=== PATIENT | male | born 1960 | race Caucasian/White ===

== ENCOUNTER 2017-06-26 13:20 | Emergency (ER) | payer MEDICAID, SELFPAY ==
[2017-06-26 13:22] VITALS: BP 176/108; PULSE 79; RESP 20; TEMP 36.4; O2SAT 98; BMI 27.3
[2017-06-26 13:48] VITALS: BP 160/95; PULSE 80; RESP 14; O2SAT 98
[2017-06-26 13:57] LABS: Bacteria 0 SEEN /hpf (None Seen); Mucous, Urine 0 SEEN /hpf (<or=2+); Squamous Epithelial Cells - UA 0 SEEN /hpf (0-5)
[2017-06-26 13:58] LABS: Color, Urine Yellow (Yellow); Glucose, Dipstick Normal (Normal); Ketone-Dipstick Negative (Negative); Leukocyte Esterase-Dipstick 25 /ul (Negative); Nitrite-Dipstick Positive (Negative); Occult Blood-Urine 250 /ul (Negative); Protein-Dipstick 30 mg/dl (Negative); Specific Gravity, Urine 1.025 (1.002-1.030); Urine Bilirubin Dipstick Negative (Negative); Urine Clarity Sl. Cloudy (Clear); Urine Urobilinogen Normal (Normal)
[2017-06-26 14:03] LABS: Red Blood Cells-Urine > 100 SEEN /hpf (0-5)
[2017-06-26 14:05] LABS: White Blood Cells 0-5 SEEN /hpf (0-5); Yeast-Urine RARE /hpf (None Seen)
--- NOTE | 2017-06-26 14:55 | CT_ITS ---
STUDY: CT ABDOMEN AND PELVIS WITHOUT CONTRAST REASON FOR EXAM: Male, 56 years old. Right sided flank pain. RADIATION DOSAGE (If Supplied By Facility): CTDIvol = ( 14.66 ) mGy, DLP = ( 765.69 ) mGycm TECHNIQUE: Transaxial images were obtained from the dome of the diaphragm to the symphysis pubis without oral contrast, and without intravenous contrast. Sagittal and coronal images were reconstructed. Individualized dose optimization techniques were used for this CT. COMPARISON: None. FINDINGS: The visualized lung bases are unremarkable. The visualized portions of the heart are within normal limits. Normal liver. Normal gallbladder and extrahepatic biliary system. Normal spleen. Normal pancreas. Normal bilateral adrenal glands. 2 mm calculus in the upper midportion of the right kidney. Normal left kidney. There is a small hiatal hernia. Normal small intestine. Normal colon. The appendix is visualized and appears normal. There is scattered atherosclerotic calcification of the abdominal aorta, without a demonstrated aneurysm. Normal inferior vena cava. Normal retroperitoneum. Normal urinary bladder. There are prostatic calcifications. Normal abdominal wall. There are degenerative changes of the visualized lumbar spine. CT/Abdomen/Pelvis without Cont IMPRESSION: Nonobstructive right intrarenal calculus. Electronically Signed: Josh Truong MD at 15:36 EDT Tel [phone], Service support ,
[2017-06-26] MEDS: HYDROmorphone 1 MG/ML Syringe 0.5 MG IV (15:01)
[2017-06-26] MEDS: Ketorolac 30 MG/ML Syringe IV (15:02)
[2017-06-26] MEDS: Ondansetron 4 MG/2 ML Vial IV (15:02)
[2017-06-26 15:10] LABS: Absolute Lymphocyte Count 4.17 X10^3/ul (0.83-4.51); Absolute Neutrophil Count 3.1 X10^3/uL (2.0-7.7); Basophil# 0.05 X10^3/uL; Basophil% 0.6 % (0-1); Eosinophil# 0.19 X10^3/uL; Eosinophils% 2.2 % (0-5); Hematocrit 47.9 % (40-54); Hemoglobin 16.2 g/dl (13.0-16.5); Lymphocyte # 4.17 X10^3/ul (4.0); Lymphocyte % 47.7 % (19-41); Mean Corp Hgb Conc 33.8 g/gl (32-36); Mean Corpuscular Volume 94.5 fL (80-94); Mean Platelet Vol. 10.1 fl (6.2-12.0); Monocyte# 1.19 X10^3/uL; Monocyte% 13.6 % (0-10); Neutrophil # 3.12 X10^3/uL (2.7-7.7); Neutrophil % 35.7 % (47-70); Platelet Count 171 K/mm3 (150-450); RBC Distribution Width CV 15.4 % (11.6-14.6); RBC Distribution Width SD 52.9 fl (35.1-43.9); Red Blood Count 5.07 M/mm3 (4.6-6.2); White Blood Count 8.7 K/mm3 (4.4-11.0)
[2017-06-26 15:11] LABS: POSITIVE COUNT NO; POSITIVE DIFFERENTIAL NO; POSITIVE MORPHOLOGY NO
[2017-06-26 15:23] VITALS: BP 158/89; PULSE 85; RESP 14; O2SAT 98
[2017-06-26 15:26] LABS: Anion Gap 9 (5-15); BUN 14 mg/dL (7-18); BUN/Creat Ratio 13.9 RATIO (10-20); Calcium,Total 9.5 mg/dL (8.5-10.1); Chloride 107 mmol/L (98-107); Creatinine, Serum 1.01 mg/dL (0.70-1.30); EST Glomerular Filtration Rate 81 mL/min (>60); Est Glom Filt Rate - Afr Amer 98 mL/min (>60); Estimated Creatinine Clearance 79.01 ml/min; Glucose 92 mg/dL (74-106); Potassium 3.7 mmol/L (3.5-5.1); Sodium Level 137 mmol/L (136-145)
[2017-06-26 16:07] VITALS: BP 160/75; PULSE 80; RESP 14; O2SAT 98
--- NOTE | 2017-06-26 16:09 | ED.DCSUM_ITS ---
- ER Visit Summary Date of Service: 06/26/17 Chief Complaint: [Right flank pain ] History of Present Illness: The patient is a 56 M [who presents the emergency department with right flank pain. It radiates to his right testicle. He has noted some hematuria. Fevers or chills. He did have some urinary hesitancy earlier today.] Physical Examination: [] Blood pressure 158/89 other vitals within acceptable limits WN WD NAD PERRL EOMI MMM NECK supple and nontender, no masses RRR no murmur rub or gallop, no peripheral edema, symmetric radial pulses CTAB no respiratory distress ABDOMEN is soft and nontender, normal bowel sounds, no distension, no rebound or guarding SKIN is warm and dry no rashes Alert and Oriented x3, CN II-XII in tact, no motor or sensory deficits, gait normal No lymphadenopathy Test Results: [] Emergency Department Course and Treatment: [Urinalysis is nitrite positive but there is no white blood cells. He has greater than 100 red blood cells. Screening blood work was unremarkable. CT of the abdomen and pelvis shows a 2 mm right renal stone but no acute urolithiasis. I think the patient likely had a kidney stone or has a small kidney stone. He will be treated as such. Because he is nitrite positive with urinary symptoms I will cover him with Cipro. I will refer him to Dr. Camargo.] Treatment Plan: [] Disposition: [Discharge] Impression: [Flank pain] This note was generated with [facility] dictation software. It may contain incorrect words, spelling, and punctuation that were not noted in review of the chart prior to signing ED Disposition - Plan for ED Patient: Chief Complaint: Flank Pain Referrals: Tommy Leonard MD [Primary Care Provider] -
--- NOTE | 2017-06-26 16:12 | ED.DEP ---
ED Disposition - Plan for ED Patient: Chief Complaint: Flank Pain Instructions: ED Flank Pain Uncertain Cause, ED Hematuria Prescriptions: Hydrocodone Bitart/Apap 5-325 [[place] 5MG-325MG] 1 tablet PO Q6H PRN PRN 3 Days #10 tablet PRN Reason: Pain proMETHazine tablet [Phenergan] 25 mg PO Q6H PRN PRN #10 tablet PRN Reason: Nausea Ciprofloxacin [Cipro] 500 mg PO BID #14 tablet Referrals: Linwood Camargo MD [STAFF PHYSICIAN] - 5-7 Days
--- NOTE | 2017-06-26 16:15 | DCINST.ED_ITS ---
ED Disposition - Plan for ED Patient: Chief Complaint: Flank Pain Instructions: ED Flank Pain Uncertain Cause, ED Hematuria Prescriptions: Hydrocodone Bitart/Apap 5-325 [[place] 5MG-325MG] 1 tablet PO Q6H PRN PRN 3 Days # 10 tablet PRN Reason: Pain proMETHazine tablet [Phenergan] 25 mg PO Q6H PRN PRN #10 tablet PRN Reason: Nausea Ciprofloxacin [Cipro] 500 mg PO BID #14 tablet Referrals: Linwood Camargo MD [STAFF PHYSICIAN] - 5-7 Days
== END 2017-06-26 16:29 | disposition home or self-care (01) ==
PROVIDERS: Emergency Provider Emergency Medicine; Family Provider Family Medicine; PCP Family Medicine
DX: R10.9 Unspecified abdominal pain (principal); N20.0 Calculus of kidney; E78.00 Pure hypercholesterolemia, unspecified; Z87.442 Personal history of urinary calculi
CPT/HCPCS: 74176; 80048; 81001; 85025; 87086; 96374; 96375; 99284; A4216; J2405

== ENCOUNTER 2018-07-08 18:55 | Inpatient (IN) | payer MEDICAID, SELFPAY ==
[2018-07-08 19:02] VITALS: BP 163/105; PULSE 135; RESP 17; TEMP 38.2; O2SAT 97; BMI 27.7
--- NOTE | 2018-07-08 19:42 | EKG12_ITS ---
Test Reason : Blood Pressure : / mmHG Vent. Rate : 101 BPM Atrial Rate : 101 BPM P-R Int : 172 ms QRS Dur : 070 ms QT Int : 318 ms P-R-T Axes : 048 024 055 degrees QTc Int : 412 ms Sinus tachycardia Low voltage QRS Borderline ECG Confirmed by ALBERTINA VITAL ([id number]), writer editor EJ HUGO ([id number]) on 07/10/2018 8:31:36 AM Referred By: HAMLET Confirmed By:ALBERTINA VITAL
--- NOTE | 2018-07-08 19:45 | ED.RN ---
SPOKE WITH DR. BARBA. DAENGELO DISCONTINUED. PATIENT NOT SUICIDAL.
--- NOTE | 2018-07-08 19:48 | ED.RN ---
NO OLD EKGS IN MUSE
[2018-07-08 19:52] LABS: Bacteria 0 SEEN /hpf (None Seen); Red Blood Cells-Urine 0 SEEN /hpf (0-5)
[2018-07-08] MEDS: Acetaminophen 325 MG Tablet 650 MG PO (19:53)
[2018-07-08 19:55] LABS: Absolute Lymphocyte Count 4.16 X10^3/ul (0.83-4.51); Absolute Neutrophil Count 2.3 X10^3/uL (2.0-7.7); Basophil# 0.05 X10^3/uL; Basophil% 0.7 % (0-1); Eosinophil# 0.09 X10^3/uL; Eosinophils% 1.3 % (0-5); Hematocrit 49.1 % (40-54); Hemoglobin 17.6 g/dl (13.0-16.5); Lymphocyte # 4.16 X10^3/ul (4.0); Lymphocyte % 58.2 % (19-41); Mean Corp Hgb Conc 35.8 g/gl (32-36); Mean Corpuscular Hgb 32.7 pg (27.0-32.0); Mean Corpuscular Volume 91.1 fL (80-94); Monocyte% 8.4 % (0-10); Neutrophil # 2.25 X10^3/uL (2.7-7.7); Neutrophil % 31.4 % (47-70); POSITIVE COUNT NO; POSITIVE DIFFERENTIAL NO; POSITIVE MORPHOLOGY NO; Platelet Count 130 K/mm3 (150-450); RBC Distribution Width CV 14.2 % (11.6-14.6); RBC Distribution Width SD 47.3 fl (35.1-43.9); Red Blood Count 5.39 M/mm3 (4.6-6.2); White Blood Count 7.2 K/mm3 (4.4-11.0)
--- NOTE | 2018-07-08 19:55 | CM.ED ---
SOCIAL WORK DISCUSSED CASE WITH DR. BARBA. PER DR. BARBA, PATIENT DENIES SUICIDAL IDEATIONS. PATIENT WANTING ALCOHOL DETOX. ANTICIPATE REFERRAL TO [facility]. NO SOCIAL SERVICE NEED AT THIS TIME. JENN GRACE, [employer]IE[employer], MAINTENANCE [employer].
[2018-07-08 20:07] VITALS: PULSE 106; RESP 18; O2SAT 95
[2018-07-08] MEDS: LORazepam 2 MG/ML Syringe 0.5 MG IV (20:09)
--- NOTE | 2018-07-08 20:10 | ED.VIS.GEN ---
History of Present Illness Chief Complaint: Suicidal Detail of Chief Complaint: Requesting detox not suicidal Informant: Patient Onset: Today Timing: Continuous Quality: No longer wishes to live the way he presently does. Location: Not applicable Current Severity: Mild Maximum Severity: Moderate Worsened by: Discontinuation of psychiatric meds and binge drinking Relieved by: Nothing Associated Symptoms: Malaise, fever, generalized unwellness Narrative: Patient is a middle-age male who has not seen his therapist in approximately month. He has been discontinuing his medication as he desires. He has been drinking heavily over the past month. He binges. He has history of alcoholism. He has history of psychiatric disorder. He does not wish to and has no suicidal thoughts or plan. He states he does not like living the way he does because of his binge drinking. He presents for detox and help with his psychiatric meds. Prior similar symptoms: No Recent Illness/Hospitalization: No - Past Medical History (1) Alcoholism /alcohol abuse Status: Acute (2) Psychiatric disorder Status: Acute Past Medical History - Allergies and Home Meds Allergies/Adverse Reactions: Allergies iodine Allergy (Verified 07/08/18 19:19) Hives Penicillins Allergy (Verified 07/08/18 19:19) Hives morphine Adverse Reaction (Verified 07/08/18 19:19) HALLUCINATIONS Primary Care Physician: Tommy Leonard MD [Primary Care Provider] - Surgical History: no surgical history Lives: Alone Smoking Status: Never smoker Alcohol: Heavy Drugs: None Review of Systems General: Reports: Chills, Fever, Malaise, Subjective. Denies: Sweats, Weight loss Eyes: Denies: Visual changes - bilaterally, Blurred Vision - bilaterally, Diplopia ENT: Denies: Bilateral ear pain, Rhinorrhea, Sore throat Cardiovascular: Denies: Chest pain, Palpitations, Heart racing Respiratory: Denies: Dyspnea, Cough, Sputum, Dyspnea on exertion Gastrointestinal: Reports: Nausea. Denies: Abdominal pain, Vomiting, Diarrhea, Constipation, Melena, Hematochezia Genitourinary: Denies: Dysuria, Hematuria, Frequency Musculoskeletal: Denies: Myalgias, Arthralgias, Neck pain, Back pain, Swelling, Extremity Pain, -, - Skin: Denies: Rash, Abscess, Wounds Neurological: Denies: Headache, Weakness, Parasthesia Psych: Reports: Depression, Anxiety. Denies: Suicidal thoughts, Suicidal ideations Hematologic: Denies: Easy bruising, Easy bleeding Allergy: Denies: Uticaria Physical Exam Vital Signs/Narrative: Vital Signs Temp Pulse Resp BP Pulse Ox 07/08/18 20:07 106 H 18 95 07/08/18 19:02 100.8 F H 135 H 17 163/105 H 97 Inital Vital Signs reviewed: Yes General: Well nourished, Well developed, No Acute Distress Head: Normocephalic, Atraumatic Eyes: Perrl, EOMI. Negative for: Pale conjunctiva, Scleral icterus, - ENT: Moist mucous membranes, No rhinorrhea, TM's clear Neck: Supple, Nontender, No lymphadenopathy, No JVD Cardiovascular: Regular rhythm, No murmurs, Normal S1, Normal S2, Tachycardia Respiratory: No distress, CTA bilaterally, Chest nontender Abdomen: Soft, Nontender, Nondistended, Normal bowel sounds, No masses Back: Nontender, Normal Inspection. Negative for: CVA tenderness, Spinal tenderness Extremities: Nontender, No edema Skin: Normal color, No rash, No Trauma. Negative for: Cyanosis, Jaundice Neurological: Alert, Oriented x3, Cranial nerves II-XII grossly intact, Normal Strength, Normal Sensation, Normal DTR - Is no clonus or Babinski sign. Psychological: - - Patient denies suicidal thoughts or homicidal thoughts. Patient denies desire to . He is requesting help for his alcohol drinking. Diagnostic/Tx/Re-eval Impressions Chest X-Ray 07/08/18 21:00 IMPRESSION: No acute thoracic pathology. Electronically Signed: Dc Dorado, at 21:19 EDT Tel , Service support , 07/08/18 21:00 Chest PA and Lateral [RAD] Stat Laboratory Results 07/08/18 07/08/18 07/08/18 19:15 19:15 19:15 WBC 7.2 RBC 5.39 Hgb 17.6 H Hct 49.1 MCV 91.1 MCH 32.7 H MCHC 35.8 RDW 14.2 RDW Differential 47.3 H Plt Count 130 L MPV 10.0 Immature Gran % (Auto) 0.000 Neut % (Auto) 31.4 L Lymph % (Auto) 58.2 H [place] % (Auto) 8.4 Eos % (Auto) 1.3 Baso % (Auto) 0.7 Absolute Neuts (auto) 2.3 Absolute Lymphs (auto) 4.16 Total Counted Not Reportable Sodium 140 Potassium 3.2 L Chloride 105 Carbon Dioxide 21.0 Anion Gap 14 BUN 15 Creatinine 1.01 Estim Creat Clear Calc 75.44 Est GFR (MDRD) Af Amer 98 Est GFR (MDRD) Non-Af 81 BUN/Creatinine Ratio 14.9 Glucose 181 H Calcium 8.4 L Urine Color Urine Clarity Urine pH Ur Specific [place] Urine Protein Urine Glucose (UA) Urine Ketones Urine Occult Blood Urine Nitrite Urine Bilirubin Urine Urobilinogen Ur Leukocyte Esterase Urine RBC Urine WBC Ur Squamous Epith Cells Urine Bacteria Hyaline Casts Urine Mucus Urine Opiates Screen Urine Methadone Screen Ur Barbiturates Screen Ur Phencyclidine Scrn Ur Amphetamines Screen U Methamphetamin-MDMA U Benzodiazepines Scrn Urine Cocaine Screen U Cannabinoids Screen Ur Drug Screen Comment Ethyl Alcohol 330.0 H* 07/08/18 07/08/18 19:30 19:30 WBC RBC Hgb Hct MCV MCH MCHC RDW RDW Differential Plt Count MPV Immature Gran % (Auto) Neut % (Auto) Lymph % (Auto) [place] % (Auto) Eos % (Auto) Baso % (Auto) Absolute Neuts (auto) Absolute Lymphs (auto) Total Counted Sodium Potassium Chloride Carbon Dioxide Anion Gap BUN Creatinine Estim Creat Clear Calc Est GFR (MDRD) Af Amer Est GFR (MDRD) Non-Af BUN/Creatinine Ratio Glucose Calcium Urine Color SEE COMMENT BELOW Urine Clarity Sl. Cloudy Urine pH 6.0 Ur Specific [place] 1.020 Urine Protein 500 H Urine Glucose (UA) Normal Urine Ketones 15 H Urine Occult Blood 250 H Urine Nitrite Negative Urine Bilirubin 1 H Urine Urobilinogen 4 H Ur Leukocyte Esterase 25 H Urine RBC 0 SEEN Urine WBC 5-10 SEEN Ur Squamous Epith Cells 0-5 SEEN Urine Bacteria 0 SEEN Hyaline Casts 5-10 SEEN Urine Mucus 3+ Urine Opiates Screen NEGATIVE Urine Methadone Screen NEGATIVE Ur Barbiturates Screen NEGATIVE Ur Phencyclidine Scrn NEGATIVE Ur Amphetamines Screen NEGATIVE U Methamphetamin-MDMA POSITIVE H U Benzodiazepines Scrn NEGATIVE Urine Cocaine Screen NEGATIVE U Cannabinoids Screen NEGATIVE Ur Drug Screen Comment Ethyl Alcohol - Medical Decision Making Because patient is febrile tachycardic infectious work-up was undertaken. He also had screening blood work to assess for alcohol level, electrolytes, renal function. I was informed by nurse that patient has tremors is diaphoretic and tachycardic. He was reassessed at 2150. He is diaphoretic, tachycardic and has tremors. He is now hyperreflexic. Will treat with IV Valium. Hospitalist will be called for admission for alcohol withdrawal. Screen was positive for methamphetamine. This may be a false positive secondary to Wellbutrin. I was informed that there is no IV Valium. He was ordered additional Ativan. ED Disposition - Plan for ED Patient: Disposition: [facility] Diagnosis: Alcohol withdrawal delirium, acute, hyperactive, Sinus tachycardia by electrocardiogram, Psychiatric disorder Referrals: Tommy Leonard MD [Primary Care Provider] -
[2018-07-08 20:13] LABS: Anion Gap 14 (5-15); BUN 15 mg/dL (7-18); BUN/Creat Ratio 14.9 RATIO (10-20); Calcium,Total 8.4 mg/dL (8.5-10.1); Chloride 105 mmol/L (98-107); Creatinine, Serum 1.01 mg/dL (0.70-1.30); EST Glomerular Filtration Rate 81 mL/min (>60); Est Glom Filt Rate - Afr Amer 98 mL/min (>60); Estimated Creatinine Clearance 75.44 ml/min; Glucose 181 mg/dL (74-106); Potassium 3.2 mmol/L (3.5-5.1); Sodium Level 140 mmol/L (136-145)
[2018-07-08 20:19] LABS: Amphetamine Urine VISTA NEGATIVE (<1000 ng/mL); Barbiturate Urine VISTA NEGATIVE (< 200 ng/mL); Benzodiazepine Urine VISTA NEGATIVE (< 200 ng/mL); Cocaine Urine VISTA NEGATIVE (< 300 ng/mL); Ecstacy Urine VISTA POSITIVE (< 500 ng/mL); Methadone Urine VISTA NEGATIVE (< 300 ng/mL); PCP Urine VISTA NEGATIVE (< 25 ng/mL); THC Urine VISTA NEGATIVE (< 50 ng/mL); Vista UDS pH Range 5
[2018-07-08 20:21] LABS: Color, Urine SEE COMMENT BELOW (Yellow); Glucose, Dipstick Normal (Normal); Ketone-Dipstick 15 mg/dl (Negative); Leukocyte Esterase-Dipstick 25 /ul (Negative); Nitrite-Dipstick Negative (Negative); Occult Blood-Urine 250 /ul (Negative); Protein-Dipstick 500 mg/dl (Negative); Urine Bilirubin Dipstick 1 mg/dL (Negative); Urine Clarity Sl. Cloudy (Clear); Urine Urobilinogen 4 mg/dl (Normal)
[2018-07-08 20:28] LABS: Hyaline Cast 5-10 SEEN /lpf (0-5)
[2018-07-08 20:32] LABS: Squamous Epithelial Cells - UA 0-5 SEEN /hpf (0-5); White Blood Cells 5-10 SEEN /hpf (0-5)
[2018-07-08 20:33] LABS: Mucous, Urine 3+ /hpf (<or=2+)
[2018-07-08 21:00] VITALS: BP 150/102; PULSE 97; RESP 16; O2SAT 93
--- NOTE | 2018-07-08 21:00 | RAD_ITS ---
STUDY: X-RAY CHEST REASON FOR EXAM: Male, 57 years old. Chest pain TECHNIQUE: PA and lateral views the chest COMPARISON: None. FINDINGS: The lungs are clear. There are no pleural effusions. There is no pneumothorax. The heart is normal in size. The visualized osseous structures are within normal limits. RAD/Chest PA and Lateral IMPRESSION: No acute thoracic pathology. Electronically Signed: Dc Dorado, at 21:19 EDT Tel , Service support ,
[2018-07-08] MEDS: LORazepam 2 MG/ML Syringe IV ×2 (22:00→22:40)
[2018-07-08] MEDS: diazePAM 10 MG/2 ML Syringe IV (22:28)
[2018-07-08 23:00] VITALS: BP 170/125; PULSE 149; RESP 18; O2SAT 96
[2018-07-08 23:31] VITALS: BP 146/102; PULSE 110; RESP 16; TEMP 37.4; O2SAT 95
[2018-07-08 23:32] VITALS: BMI 27.9
--- NOTE | 2018-07-08 23:48 | HP.PCM_ITS ---
Problem List (1) Bipolar disorder Status: Chronic Qualifiers: Active/Remission status: currently active Current bipolar episode type: mixed Current episode severity: moderate Qualified Code(s): F31.62 - Bipolar disorder, current episode mixed, moderate (2) Alcohol withdrawal delirium, acute, hyperactive Status: Acute History of Present Illness Date of Admission: 07/08/18 Chief Complaint: anxiety, alcohol withdrawal The patient is a 57 year old M who was seen in the emergency room at [facility] after making a statement to the triage desk that he did not want to live like this anymore, patient is a binge drinker, he states that for the last 3 weeks he has been binge drinking-the exact amount of alcohol the patient states that he drinks varies from what he told me and what he told the emergency room physician. It is also difficult to get information from the patient, he is vague at times and is a poor informant. Patient states he has a history of bipolar disorder-he has been bipolar for 30 years However, patient denies ever being placed on lithium or Depakote. Patient is on several medications from his psychiatrist who he sees in town here, patient is not happy because he has to take multiple meds so he does not take his medication most of the time-again patient was vague about what medicines he actually does take at home-he indicated to me that he does take Klonopin and occasionally Lamictal if he cannot sleep. Patient came to the ER today to get help with his alcoholism. Work-up in the emergency room included labs which showed the patient's blood alcohol level to be 330, he had positive methamphetamines in the urine (patient states he takes Wellbutrin at times which had been prescribed to him, he denies any usage of methamphetamines), potassium was slightly low at 3.2, glucose was 181. Patient had a chest x-ray which showed no acute disease. Patient was very anxious and tremorous in the emergency room, he was given IV Ativan twice with some relief of his symptoms. I had a long discussion with the patient, I think the patient's problems in addition to his alcoholism include poorly treated psychiatric disease. I talked to him about seeing crisis while he was in the hospital here and he agreed to see them. Patient will be admitted for alcohol withdrawal and bipolar disorder-I am somewhat puzzled that the patient has symptoms of alcohol withdrawal with a 330 ethanol level however. Past Medical History Past Medical History (Chronic Problems): Chronic Problems Bipolar disorder (Chronic) Allergies iodine Allergy (Verified 07/08/18 19:19) Hives Penicillins Allergy (Verified 07/08/18 19:19) Hives morphine Adverse Reaction (Verified 07/08/18 19:19) HALLUCINATIONS Home Medications: Ambulatory Orders Medication Instructions Recorded Atorvastatin Calcium [Lipitor] 10 mg PO QHS 10/09/16 Bupropion HCl [Wellbutrin Xl] 150 mg PO BID 10/09/16 Clonazepam [Klonopin] 1 mg PO BID PRN PRN 10/09/16 Lamotrigine [Lamictal] 150 mg PO PRN PRN 10/09/16 Topiramate [Topamax] 200 mg PO BID 10/09/16 Trazodone HCl 100 mg PO QHS 10/09/16 proMETHazine tablet [Phenergan] 25 mg PO Q6H PRN PRN #10 tablet 06/26/17 Surgical History: herniorrhaphy, - - 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 deficit disorder, Bipolar Lives: Alone Smoking Status: Never smoker Tobacco Use: Non-smoker Alcohol: Heavy Drugs: None - *Family History Maternal History Items: Hypertension Paternal History Items: Heart Disease Review of Systems Constitutional: Denies: Anorexia, Chills, Fever, Night Sweats, Malaise, Weakness, Weight Change, Fatigue Eyes: Denies: Cataracts, Conjunctivae Inflammation, Double vision, Drainage HEENT: Denies: Difficulty Swallowing, Dysphasia, Ear Pain, Eye Pain, Hearing Changes, Nasal bleeding, Nasal Congestion, Post Nasal Drip Cardiovascular: Denies: Chest Pain, Claudication, Chest Pressure, Chest Tightness, Edema, Heaviness, Light Headedness, Palpitations Respiratory: Denies: Cough, Hemoptysis, Pleuritic Pain, Shortness of Breath, Shortness of breath at rest, Shortness of breath upon exertion Gastrointestinal: Denies: Abdominal Pain, Constipation, Diarrhea, Hematemesis, Hematochezia, Nausea, Melena, Vomiting Genitourinary: Denies: Dysuria, Frequency, Hematuria, Hesitancy, Urgency Musculoskeletal: Denies: Back Pain, Foot Pain, Hand Pain, Joint Pain, Joint stiffness, Joint swelling, Joint Tenderness, Leg Pain Skin: Denies: Dryness, Jaundice, Pruritis, Rash Neurological: Reports: Tremor. Denies: Blurred vision, Double vision, Change in Speech, Slurred speech, Difficulty swallowing, Focal weakness, Headaches, Incoordination, Numbness, Tingling Psychiatric: Reports: Anxiety. Denies: Depression, Homicidal Ideations, Suicidal Ideations Endocrine: Denies: Change in Body Habitus, Heat/ Cold Intolerance, Polydipsia, Polyuria Hematologic/ Lymphatic: Denies: Adenopathy, Anemia, Easy Bruising, Easy Bleeding, Petechiae, Purpura VTE Information - Inpt Only VTE Present on Admission: No VTE Mechan Device Prophylaxis: None VTE Pharm Prophylaxis ordered?: No Reason prophylaxis not ordered:: Treatment Not Indicated Patient Problems: Active and Suspected Problems Alcoholism /alcohol abuse (Acute) Psychiatric disorder (Suspected) Alcohol withdrawal delirium, acute, hyperactive (Acute) Sinus tachycardia by electrocardiogram (Acute) - Physical Exam General: Alert, Oriented x3, Cooperative, Well developed, Well nourished, - - Patient appears nervous HEENT: Atraumatic, PERRLA, EOMI, Normocephalic Oral: Moist Mucosa Neck: Supple, No JVD, Negative Carotid Bruits, No Nuchal Rigidity, Trachea Midline, Thyroid Normal Size and Texture Lungs: Clear to auscultation, Normal air movement, No rhonchi, No wheeze, No rales Cardiovascular: Regular rate, Regular Rhythm, Normal S1, Normal S2, No murmurs, No Ectopic Activity, PMI Normal, No rub noted, No Gallop Abdomen: Bowel Sounds Present, Soft, Non Tender, Non-Distended, No hernias noted Extremities: No clubbing, No cyanosis, No edema, Capillary Refill Less than 3 Seconds Skin: No rashes, No breakdown Musculoskeletal: No Tenderness to Palpation of Joints or Extremities Neurological: Cranial nerves II-XII grossly intact, Neuro grossly intact, Sensory exam intact to light touch and pain, Coordination normal Psych/Mental Status: Anxious, Restless, - - Patient is alert and oriented x3, he does appear to be anxious and has rapid speech Vital Signs Temp Pulse Resp BP Pulse Ox 100.8 F H 149 H 18 170/125 H 96 07/08/18 19:02 07/08/18 23:00 07/08/18 23:00 07/08/18 23:00 07/08/18 23:00 Oxygen Delivery Method Room Air Weight: 80.4 kg Body Mass Index (BMI) 27.7 Laboratory Tests Past 24 Hrs 07/08/18 07/08/18 07/08/18 19:15 19:15 19:15 WBC 7.2 RBC 5.39 Hgb 17.6 H Hct 49.1 MCV 91.1 MCH 32.7 H MCHC 35.8 RDW 14.2 RDW Differential 47.3 H Plt Count 130 L MPV 10.0 Immature Gran % (Auto) 0.000 Neut % (Auto) 31.4 L Lymph % (Auto) 58.2 H [place] % (Auto) 8.4 Eos % (Auto) 1.3 Baso % (Auto) 0.7 Absolute Neuts (auto) 2.3 Absolute Lymphs (auto) 4.16 Total Counted Not Reportable Sodium 140 Potassium 3.2 L Chloride 105 Carbon Dioxide 21.0 Anion Gap 14 BUN 15 Creatinine 1.01 Estim Creat Clear Calc 75.44 Est GFR (MDRD) Af Amer 98 Est GFR (MDRD) Non-Af 81 BUN/Creatinine Ratio 14.9 Glucose 181 H Calcium 8.4 L Urine Color Urine Clarity Urine pH Ur Specific [place] Urine Protein Urine Glucose (UA) Urine Ketones Urine Occult Blood Urine Nitrite Urine Bilirubin Urine Urobilinogen Ur Leukocyte Esterase Urine RBC Urine WBC Ur Squamous Epith Cells Urine Bacteria Hyaline Casts Urine Mucus Urine Opiates Screen Urine Methadone Screen Ur Barbiturates Screen Ur Phencyclidine Scrn Ur Amphetamines Screen U Methamphetamin-MDMA U Benzodiazepines Scrn Urine Cocaine Screen U Cannabinoids Screen Ur Drug Screen Comment Ethyl Alcohol 330.0 H* 07/08/18 07/08/18 19:30 19:30 WBC RBC Hgb Hct MCV MCH MCHC RDW RDW Differential Plt Count MPV Immature Gran % (Auto) Neut % (Auto) Lymph % (Auto) [place] % (Auto) Eos % (Auto) Baso % (Auto) Absolute Neuts (auto) Absolute Lymphs (auto) Total Counted Sodium Potassium Chloride Carbon Dioxide Anion Gap BUN Creatinine Estim Creat Clear Calc Est GFR (MDRD) Af Amer Est GFR (MDRD) Non-Af BUN/Creatinine Ratio Glucose Calcium Urine Color SEE COMMENT BELOW Urine Clarity Sl. Cloudy Urine pH 6.0 Ur Specific [place] 1.020 Urine Protein 500 H Urine Glucose (UA) Normal Urine Ketones 15 H Urine Occult Blood 250 H Urine Nitrite Negative Urine Bilirubin 1 H Urine Urobilinogen 4 H Ur Leukocyte Esterase 25 H Urine RBC 0 SEEN Urine WBC 5-10 SEEN Ur Squamous Epith Cells 0-5 SEEN Urine Bacteria 0 SEEN Hyaline Casts 5-10 SEEN Urine Mucus 3+ Urine Opiates Screen NEGATIVE Urine Methadone Screen NEGATIVE Ur Barbiturates Screen NEGATIVE Ur Phencyclidine Scrn NEGATIVE Ur Amphetamines Screen NEGATIVE U Methamphetamin-MDMA POSITIVE H U Benzodiazepines Scrn NEGATIVE Urine Cocaine Screen NEGATIVE U Cannabinoids Screen NEGATIVE Ur Drug Screen Comment Ethyl Alcohol Assessment/Plan All Active Problems Alcoholism /alcohol abuse (Acute) Alcohol withdrawal delirium, acute, hyperactive (Acute) Sinus tachycardia by electrocardiogram (Acute) #1 alcohol withdrawal-acute, patient will be admitted to [facility] 3, I will place him on Librium programmed without a taper, he will receive Ativan IV as needed #2 bipolar disorder-I feel that some of the patient's symptoms are due to his poorly treated bipolar disorder-patient appears to be noncompliant with his medications and I do not know if he follows up regularly with his psychologist or psychiatrist. I have decided to place the patient on Seroquel 100 mg twice daily. Crisis intervention will see the patient #3 hypokalemia-mild, potassium replacement was ordered Code Visit Inpatient E&M: 28277 Init Hosp L3
[2018-07-09] VITALS (14 sets, daily range): BP systolic 133–169; BP diastolic 91–107; PULSE 90–133; RESP 16–20; TEMP 36.8–37.4; O2SAT 93–96
[2018-07-09] MEDS: QUEtiapine 100 MG Tablet PO ×3 (00:08→21:03)
--- NOTE | 2018-07-09 02:24 | NURSING ---
Pt awaken from sound sleep c/o of feeling SOB and tingling all over, speech sounds thick, pt states Right eye is blurry vision. States in November he felt like this went to Ed ? if a panic attack.
--- NOTE | 2018-07-09 02:32 | NURSING ---
Pt fell asleep while I was talking with the Dr. Haque.
[2018-07-09] MEDS: chlordiazePOXIDE 25 MG Capsule 50 MG PO ×3 (05:47→21:03)
[2018-07-09] MEDS: LORazepam 1 MG Tablet 2 MG PO (05:51)
--- NOTE | 2018-07-09 08:29 | PCM.PN.HOSP ---
Patient Problems: Active and Suspected Problems Alcoholism /alcohol abuse (Acute) Psychiatric disorder (Suspected) Alcohol withdrawal delirium, acute, hyperactive (Acute) Sinus tachycardia by electrocardiogram (Acute) Subjective: States that he feels a little bit better than yesterday though he is diaphoretic and per his words twitchy Vitals/I&O's: Vital Signs Temp Pulse Resp BP Pulse Ox 98.4 F 130 H 16 139/101 H 96 07/09/18 05:45 07/09/18 05:54 07/09/18 05:45 07/09/18 05:45 07/09/18 05:45 Oxygen Delivery Method Room Air Weight: 186 lb 6.4 oz Body Mass Index (BMI) 27.9 Intake and Output for Last 24 Hours 07/07/18 07/08/18 07/09/18 23:59 23:59 23:59 Intake Total 1020 / 1020 Balance 1020 / 1020 General: Alert, Oriented x3, Cooperative, No apparent distress, - - Diaphoretic HEENT: Atraumatic, PERRLA, EOMI, Normocephalic Oral: Dry Mucosa Neck: Supple, No JVD Lungs: Clear to auscultation, Normal air movement, No rhonchi, No wheeze, No rales Cardiovascular: Regular rate, Regular Rhythm, Normal S1, Normal S2, No murmurs Abdomen: Soft, Non Tender, Non-Distended, No Hepato-splenomegaly Extremities: No edema, Capillary Refill Less than 3 Seconds Skin: No rashes, No breakdown Neurological: Neuro grossly intact, Sensory exam intact to light touch and pain, - - No significant tremor at the moment Psych/Mental Status: Anxious Laboratory Results 07/08/18 19:15: WBC 7.2, RBC 5.39, Hgb 17.6 H, Hct 49.1, MCV 91.1, MCH 32.7 H, MCHC 35.8, RDW 14.2, RDW Differential 47.3 H, Plt Count 130 L, MPV 10.0, Immature Gran % (Auto) 0.000, Neut % (Auto) 31.4 L, Lymph % (Auto) 58.2 H, [place] % (Auto) 8.4, Eos % (Auto) 1.3, Baso % (Auto) 0.7, Absolute Neuts (auto) 2.3, Absolute Lymphs (auto) 4.16, Total Counted Not Reportable 07/08/18 19:15: Sodium 140, Potassium 3.2 L, Chloride 105, Carbon Dioxide 21.0, Anion Gap 14, BUN 15, Creatinine 1.01, Estim Creat Clear Calc 75.44, Est GFR (MDRD) Af Amer 98, Est GFR (MDRD) Non-Af 81, BUN/Creatinine Ratio 14.9, Glucose 181 H, Calcium 8.4 L 07/08/18 19:15: Ethyl Alcohol 330.0 H* 07/08/18 19:30: Urine Color SEE COMMENT BELOW, Urine Clarity Sl. Cloudy, Urine pH 6.0, Ur Specific [place] 1.020, Urine Protein 500 H, Urine Glucose (UA) Normal, Urine Ketones 15 H, Urine Occult Blood 250 H, Urine Nitrite Negative, Urine Bilirubin 1 H, Urine Urobilinogen 4 H, Ur Leukocyte Esterase 25 H, Urine RBC 0 SEEN, Urine WBC 5-10 SEEN, Ur Squamous Epith Cells 0-5 SEEN, Urine Bacteria 0 SEEN, Hyaline Casts 5-10 SEEN, Urine Mucus 3+ 07/08/18 19:30: Urine Opiates Screen NEGATIVE, Urine Methadone Screen NEGATIVE, Ur Barbiturates Screen NEGATIVE, Ur Phencyclidine Scrn NEGATIVE, Ur Amphetamines Screen NEGATIVE, U Methamphetamin-MDMA POSITIVE H, U Benzodiazepines Scrn NEGATIVE, Urine Cocaine Screen NEGATIVE, U Cannabinoids Screen NEGATIVE, Ur Drug Screen Comment Current Medications Acetaminophen (Tylenol) 650 mg PO Q6H PRN PRN PRN Reason: Mild Pain (1-3)/Temp > 100.7 F Chlordiazepoxide (Librium) 50 mg PO TID [facility] Last Admin: 07/09/18 05:47 Dose: 50 mg Folic Acid (Folic Acid) 1 mg PO DAILY@0800 [facility] Stop: 07/11/18 08:01 Lorazepam (Ativan) 2 mg PO Q2H PRN PRN; Protocol PRN Reason: CIWA score > 8 but <15 Last Admin: 07/09/18 05:51 Dose: 2 mg Lorazepam (Ativan) 2 mg PO UD PRN; Protocol PRN Reason: CIWA score >/=15. Lorazepam (Ativan) 2 mg IV Q2H PRN PRN; Protocol PRN Reason: CIWA score > 8 but <15 Lorazepam (Ativan) 2 mg IV UD PRN; Protocol PRN Reason: CIWA score >/=15. Ondansetron HCl (Zofran) 4 mg IV Q8H PRN PRN PRN Reason: NAUSEA/VOMITING Quetiapine Fumarate (Seroquel) 100 mg PO BID [facility] Last Admin: 07/09/18 00:08 Dose: 100 mg Sodium Chloride () 5 - 15 ml IV UD PRN PRN Reason: SALINE FLUSH [facility] Stop: 07/11/18 17:01 Medical Necessity - Tobacco Use Smoking Status: Never smoker Tobacco Use: Non-smoker Assessment/Plan All Active Problems Alcoholism /alcohol abuse (Acute) Alcohol withdrawal delirium, acute, hyperactive (Acute) Sinus tachycardia by electrocardiogram (Acute) 1. Alcohol withdrawal and bipolar disorder -He is a binge drinker with a blood alcohol level of 300 when he presented to the ER -He was placed on Librium as well as Ativan to control his symptoms -It is difficult to get a straight answer from him about his compliance with medication he states that nothing is ever worked -He is supposed to be on Lamictal which is labeled as as needed which does not make sense as well as Topamax which is 200 mg twice daily and Klonopin 1 mg twice daily as needed as well as Wellbutrin 150 mg p.o. twice daily -Once he is through his withdrawal will contact [facility] for inpatient psych placement -He was started on Seroquel inpatient DVT: Ambulation Code Visit Inpatient E&M: 88933 Subs Hosp L2
--- NOTE | 2018-07-09 08:33 | PN_ITS ---
Patient Problems: Active and Suspected Problems Alcoholism /alcohol abuse (Acute) Psychiatric disorder (Suspected) Alcohol withdrawal delirium, acute, hyperactive (Acute) Sinus tachycardia by electrocardiogram (Acute) Subjective: States that he feels a little bit better than yesterday though he is diaphoretic and per his words twitchy Vitals/I&O's: Vital Signs Temp Pulse Resp BP Pulse Ox 98.4 F 130 H 16 139/101 H 96 07/09/18 05:45 07/09/18 05:54 07/09/18 05:45 07/09/18 05:45 07/09/18 05:45 Oxygen Delivery Method Room Air Weight: 186 lb 6.4 oz Body Mass Index (BMI) 27.9 Intake and Output for Last 24 Hours 07/07/18 07/08/18 07/09/18 23:59 23:59 23:59 Intake Total 1020 / 1020 Balance 1020 / 1020 General: Alert, Oriented x3, Cooperative, No apparent distress, - - Diaphoretic HEENT: Atraumatic, PERRLA, EOMI, Normocephalic Oral: Dry Mucosa Neck: Supple, No JVD Lungs: Clear to auscultation, Normal air movement, No rhonchi, No wheeze, No rales Cardiovascular: Regular rate, Regular Rhythm, Normal S1, Normal S2, No murmurs Abdomen: Soft, Non Tender, Non-Distended, No Hepato-splenomegaly Extremities: No edema, Capillary Refill Less than 3 Seconds Skin: No rashes, No breakdown Neurological: Neuro grossly intact, Sensory exam intact to light touch and pain, - - No significant tremor at the moment Psych/Mental Status: Anxious Laboratory Results 07/08/18 19:15: WBC 7.2, RBC 5.39, Hgb 17.6 H, Hct 49.1, MCV 91.1, MCH 32.7 H, MCHC 35.8, RDW 14.2, RDW Differential 47.3 H, Plt Count 130 L, MPV 10.0, Immature Gran % (Auto) 0.000, Neut % (Auto) 31.4 L, Lymph % (Auto) 58.2 H, [place] % (Auto) 8.4, Eos % (Auto) 1.3, Baso % (Auto) 0.7, Absolute Neuts (auto) 2.3, Absolute Lymphs (auto) 4.16, Total Counted Not Reportable 07/08/18 19:15: Sodium 140, Potassium 3.2 L, Chloride 105, Carbon Dioxide 21.0, Anion Gap 14, BUN 15, Creatinine 1.01, Estim Creat Clear Calc 75.44, Est GFR (MDRD) Af Amer 98, Est GFR (MDRD) Non-Af 81, BUN/Creatinine Ratio 14.9, Glucose 181 H, Calcium 8.4 L 07/08/18 19:15: Ethyl Alcohol 330.0 H* 07/08/18 19:30: Urine Color SEE COMMENT BELOW, Urine Clarity Sl. Cloudy, Urine pH 6.0, Ur Specific [place] 1.020, Urine Protein 500 H, Urine Glucose (UA) Normal, Urine Ketones 15 H, Urine Occult Blood 250 H, Urine Nitrite Negative, Urine Bilirubin 1 H, Urine Urobilinogen 4 H, Ur Leukocyte Esterase 25 H, Urine RBC 0 SEEN, Urine WBC 5-10 SEEN, Ur Squamous Epith Cells 0-5 SEEN, Urine Bacteria 0 SEEN, Hyaline Casts 5-10 SEEN, Urine Mucus 3+ 07/08/18 19:30: Urine Opiates Screen NEGATIVE, Urine Methadone Screen NEGATIVE, Ur Barbiturates Screen NEGATIVE, Ur Phencyclidine Scrn NEGATIVE, Ur Amphetamines Screen NEGATIVE, U Methamphetamin-MDMA POSITIVE H, U Benzodiazepines Scrn NEGATIVE, Urine Cocaine Screen NEGATIVE, U Cannabinoids Screen NEGATIVE, Ur Drug Screen Comment Current Medications Acetaminophen (Tylenol) 650 mg PO Q6H PRN PRN PRN Reason: Mild Pain (1-3)/Temp > 100.7 F Chlordiazepoxide (Librium) 50 mg PO TID [facility] Last Admin: 07/09/18 05:47 Dose: 50 mg Folic Acid (Folic Acid) 1 mg PO DAILY@0800 [facility] Stop: 07/11/18 08:01 Lorazepam (Ativan) 2 mg PO Q2H PRN PRN; Protocol PRN Reason: CIWA score > 8 but <15 Last Admin: 07/09/18 05:51 Dose: 2 mg Lorazepam (Ativan) 2 mg PO UD PRN; Protocol PRN Reason: CIWA score >/=15. Lorazepam (Ativan) 2 mg IV Q2H PRN PRN; Protocol PRN Reason: CIWA score > 8 but <15 Lorazepam (Ativan) 2 mg IV UD PRN; Protocol PRN Reason: CIWA score >/=15. Ondansetron HCl (Zofran) 4 mg IV Q8H PRN PRN PRN Reason: NAUSEA/VOMITING Quetiapine Fumarate (Seroquel) 100 mg PO BID [facility] Last Admin: 07/09/18 00:08 Dose: 100 mg Sodium Chloride () 5 - 15 ml IV UD PRN PRN Reason: SALINE FLUSH [facility] Stop: 07/11/18 17:01 Medical Necessity - Tobacco Use Smoking Status: Never smoker Tobacco Use: Non-smoker Assessment/Plan All Active Problems Alcoholism /alcohol abuse (Acute) Alcohol withdrawal delirium, acute, hyperactive (Acute) Sinus tachycardia by electrocardiogram (Acute) 1. Alcohol withdrawal and bipolar disorder -He is a binge drinker with a blood alcohol level of 300 when he presented to the ER -He was placed on Librium as well as Ativan to control his symptoms -It is difficult to get a straight answer from him about his compliance with medication he states that nothing is ever worked -He is supposed to be on Lamictal which is labeled as as needed which does not make sense as well as Topamax which is 200 mg twice daily and Klonopin 1 mg twice daily as needed as well as Wellbutrin 150 mg p.o. twice daily -Once he is through his withdrawal will contact [facility] for inpatient psych placement -He was started on Seroquel inpatient DVT: Ambulation Code Visit Inpatient E&M: 10527 Subs Hosp L2
[2018-07-09] MEDS: Thiamine Hydrochloride 100 MG Tablet PO ×2 (08:39→17:05)
[2018-07-09] MEDS: Folic Acid 1 MG Tablet PO (08:39)
--- NOTE | 2018-07-09 14:38 | CASEMGMT ---
Social Work Note Physician states once pt is medically cleared he will be evaluated by crisis for possible psych placement. SW to remain available. Plan: Crisis to evaluate once pt is medically cleared Niki Fan MSW, UI DESIGNER
[2018-07-09] MEDS: amLODIPine 10 MG Tablet PO (18:11)
[2018-07-09] MEDS: LORazepam 2 MG/ML Syringe IV (22:56)
[2018-07-10] VITALS (9 sets, daily range): BP systolic 120–148; BP diastolic 87–105; PULSE 105–120; RESP 16–18; TEMP 36.6–37.5; O2SAT 94–97
[2018-07-10] MEDS: chlordiazePOXIDE 25 MG Capsule 50 MG PO ×3 (06:00→21:49)
[2018-07-10 06:58] LABS: BUN 13 mg/dL (7-18); Creatinine, Serum 0.74 mg/dL (0.70-1.30); EST Glomerular Filtration Rate 115 mL/min (>60); Estimated Creatinine Clearance 106.55 ml/min; Glucose 110 mg/dL (74-106)
[2018-07-10 06:59] LABS: Anion Gap 12 (5-15); BUN/Creat Ratio 17.4 RATIO (10-20); Calcium,Total 9.2 mg/dL (8.5-10.1); Chloride 104 mmol/L (98-107); Est Glom Filt Rate - Afr Amer 139 mL/min (>60); Potassium 2.9 mmol/L (3.5-5.1); Sodium Level 140 mmol/L (136-145)
[2018-07-10] MEDS: Thiamine Hydrochloride 100 MG Tablet PO ×2 (08:16→16:09)
[2018-07-10] MEDS: Folic Acid 1 MG Tablet PO (08:16)
[2018-07-10] MEDS: amLODIPine 10 MG Tablet PO (08:16)
[2018-07-10] MEDS: QUEtiapine 100 MG Tablet PO ×2 (08:17→21:49)
--- NOTE | 2018-07-10 10:30 | CASEMGMT ---
Social Work Note Charge Nurse updated this worker that physician medically cleared pt to be evaluated by crisis and crisis has been called. Plan: Crisis to evaluate pt for possibly psych placement Niki Fan MSW, FISHING FLOATS ASSEMBLER
[2018-07-10 10:35] LABS: Magnesium 1.5 mg/dL (1.6-2.6)
[2018-07-10] MEDS: Magnesium Sulfate 4gm/100mL 4 GM/100 ML IV.SOLN. IV (12:56)
[2018-07-10] MEDS: 0.9% NaCl Peripheral Flush Adult/Peds IV (12:59)
--- NOTE | 2018-07-10 13:00 | CHAPLAIN ---
Type of Pastoral Visit _x__ Initial Visit ___ Follow-up Visit ___ On-call Visit ___ General Patient Visit ___ Spiritual Assessment ___ Family Conference ___ Bereavement ___ Rapid Response ___ Code Blue ___ Other (describe below) Pastoral Care Referral From _x__ Patient ___ Family _x__ Nurse ___ Physician ___ Solder Technician ___ [employer] Officer ___ Other (describe below) Sacrament/Intervention _x__ Active listening ___ Anointing ___ Jew _x__ Bereavement ___ Communion _x__ Katie exploration ___ _x__ Life review _x__ Prayer ___ Reconciliation ___ Sacrament of Sick _x__ Supportive presence ___ Wedding ___ Other (describe below) Pastoral Comments patient says goal is for medication evaluation, better coping and support in future, and eventual relational improvements including with connection to [facility] for spiritual support and growth
--- NOTE | 2018-07-10 15:55 | CASEMGMT ---
Social Work Note SW spoke with RN. RN updated this worker that crisis met with pt and cleared pt. Pt has IOP meeting scheduled for Saturday at 3:30pm and that crisis will be doing wellness checks for pt everyday. Pt is able to discharge today. Physician updated. Niki Fan CLOTH FOLDER HAND, PHARMACEUTICAL SALES SPECIALIST
--- NOTE | 2018-07-10 16:13 | PCM.PN.HOSP ---
Patient Problems: Active and Suspected Problems Alcoholism /alcohol abuse (Acute) Psychiatric disorder (Suspected) Alcohol withdrawal delirium, acute, hyperactive (Acute) Sinus tachycardia by electrocardiogram (Acute) Subjective: Feeling better today, signs of withdrawal have improved he is no longer diaphoretic or tremulous Vitals/I&O's: Vital Signs Temp Pulse Resp BP Pulse Ox 99 F 120 H 16 140/95 H 95 07/10/18 14:18 07/10/18 14:18 07/10/18 14:18 07/10/18 14:18 07/10/18 14:18 Oxygen Delivery Method Room Air Weight: 186 lb 6.4 oz Body Mass Index (BMI) 27.9 Intake and Output for Last 24 Hours 07/08/18 07/09/18 07/10/18 23:59 23:59 23:59 Intake Total 1650 / 1650 2200 / 2200 Balance 1650 / 1650 2200 / 2200 General: Alert, Oriented x3, Cooperative, No apparent distress, - - Diaphoretic HEENT: Atraumatic, PERRLA, EOMI, Normocephalic Oral: Dry Mucosa Neck: Supple, No JVD Lungs: Clear to auscultation, Normal air movement, No rhonchi, No wheeze, No rales Cardiovascular: Regular rate, Regular Rhythm, Normal S1, Normal S2, No murmurs Abdomen: Soft, Non Tender, Non-Distended, No Hepato-splenomegaly Extremities: No edema, Capillary Refill Less than 3 Seconds Skin: No rashes, No breakdown Neurological: Neuro grossly intact, Sensory exam intact to light touch and pain, - - No significant tremor at the moment Psych/Mental Status: Anxious Laboratory Results 07/10/18 06:20: Sodium 140, Potassium 2.9 L, Chloride 104, Carbon Dioxide 24.0, Anion Gap 12, BUN 13, Creatinine 0.74, Estim Creat Clear Calc 106.55, Est GFR (MDRD) Af Amer 139, Est GFR (MDRD) Non-Af 115, BUN/Creatinine Ratio 17.4, Glucose 110 H, Calcium 9.2 07/10/18 06:20: Magnesium 1.5 L Current Medications Acetaminophen (Tylenol) 650 mg PO Q6H PRN PRN PRN Reason: Mild Pain (1-3)/Temp > 100.7 F Amlodipine Besylate (Norvasc) 10 mg PO DAILY [facility] Last Admin: 07/10/18 08:16 Dose: 10 mg Chlordiazepoxide (Librium) 50 mg PO TID [facility] Last Admin: 07/10/18 14:19 Dose: 50 mg Folic Acid (Folic Acid) 1 mg PO DAILY@0800 [facility] Stop: 07/11/18 08:01 Last Admin: 07/10/18 08:16 Dose: 1 mg Lorazepam (Ativan) 2 mg PO Q2H PRN PRN; Protocol PRN Reason: CIWA score > 8 but <15 Last Admin: 07/09/18 05:51 Dose: 2 mg Lorazepam (Ativan) 2 mg PO UD PRN; Protocol PRN Reason: CIWA score >/=15. Lorazepam (Ativan) 2 mg IV Q2H PRN PRN; Protocol PRN Reason: CIWA score > 8 but <15 Last Admin: 07/09/18 22:56 Dose: 2 mg Lorazepam (Ativan) 2 mg IV UD PRN; Protocol PRN Reason: CIWA score >/=15. Ondansetron HCl (Zofran) 4 mg IV Q8H PRN PRN PRN Reason: NAUSEA/VOMITING Quetiapine Fumarate (Seroquel) 100 mg PO BID [facility] Last Admin: 07/10/18 08:17 Dose: 100 mg Sodium Chloride () 5 - 15 ml IV UD PRN PRN Reason: SALINE FLUSH Last Admin: 07/10/18 12:59 Dose: 10 ml Thiamine [facility] ([facility]) [facility] Stop: 07/11/18 17:01 Last Admin: 07/10/18 16:09 Dose: 100 mg Medical Necessity - Tobacco Use Smoking Status: Never smoker Tobacco Use: Non-smoker Assessment/Plan All Active Problems Alcoholism /alcohol abuse (Acute) Alcohol withdrawal delirium, acute, hyperactive (Acute) Sinus tachycardia by electrocardiogram (Acute) 1. Alcohol withdrawal and bipolar disorder -He is a binge drinker with a blood alcohol level of 300 when he presented to the ER -He was placed on Librium as well as Ativan to control his symptoms, he has been doing well -It is difficult to get a straight answer from him about his compliance with medication he states that nothing is ever worked -He is supposed to be on Lamictal which is labeled as as needed which does not make sense as well as Topamax which is 200 mg twice daily and Klonopin 1 mg twice daily as needed as well as Wellbutrin 150 mg p.o. twice daily -He was started on Seroquel inpatient -He met with crisis today and I am unsure as to what the ultimate plan is. He did state to them that he is suicidal though he does not have a plan and he needs help. Will follow up with crisis when able to determine placement going forward 2. HTN/HLD -He is supposed be on Lipitor at home but unsure of his compliance -He is found to be hypertensive yesterday into the 160s, he was started on Norvasc 10 mg daily which will be continued. DVT: Ambulation Code Visit Inpatient E&M: 22064 Subs Hosp L2
--- NOTE | 2018-07-10 16:17 | PN_ITS ---
Patient Problems: Active and Suspected Problems Alcoholism /alcohol abuse (Acute) Psychiatric disorder (Suspected) Alcohol withdrawal delirium, acute, hyperactive (Acute) Sinus tachycardia by electrocardiogram (Acute) Subjective: Feeling better today, signs of withdrawal have improved he is no longer diaphoretic or tremulous Vitals/I&O's: Vital Signs Temp Pulse Resp BP Pulse Ox 99 F 120 H 16 140/95 H 95 07/10/18 14:18 07/10/18 14:18 07/10/18 14:18 07/10/18 14:18 07/10/18 14:18 Oxygen Delivery Method Room Air Weight: 186 lb 6.4 oz Body Mass Index (BMI) 27.9 Intake and Output for Last 24 Hours 07/08/18 07/09/18 07/10/18 23:59 23:59 23:59 Intake Total 1650 / 1650 2200 / 2200 Balance 1650 / 1650 2200 / 2200 General: Alert, Oriented x3, Cooperative, No apparent distress, - - Diaphoretic HEENT: Atraumatic, PERRLA, EOMI, Normocephalic Oral: Dry Mucosa Neck: Supple, No JVD Lungs: Clear to auscultation, Normal air movement, No rhonchi, No wheeze, No rales Cardiovascular: Regular rate, Regular Rhythm, Normal S1, Normal S2, No murmurs Abdomen: Soft, Non Tender, Non-Distended, No Hepato-splenomegaly Extremities: No edema, Capillary Refill Less than 3 Seconds Skin: No rashes, No breakdown Neurological: Neuro grossly intact, Sensory exam intact to light touch and pain, - - No significant tremor at the moment Psych/Mental Status: Anxious Laboratory Results 07/10/18 06:20: Sodium 140, Potassium 2.9 L, Chloride 104, Carbon Dioxide 24.0, Anion Gap 12, BUN 13, Creatinine 0.74, Estim Creat Clear Calc 106.55, Est GFR (MDRD) Af Amer 139, Est GFR (MDRD) Non-Af 115, BUN/Creatinine Ratio 17.4, Glucose 110 H, Calcium 9.2 07/10/18 06:20: Magnesium 1.5 L Current Medications Acetaminophen (Tylenol) 650 mg PO Q6H PRN PRN PRN Reason: Mild Pain (1-3)/Temp > 100.7 F Amlodipine Besylate (Norvasc) 10 mg PO DAILY [facility] Last Admin: 07/10/18 08:16 Dose: 10 mg Chlordiazepoxide (Librium) 50 mg PO TID [facility] Last Admin: 07/10/18 14:19 Dose: 50 mg Folic Acid (Folic Acid) 1 mg PO DAILY@0800 [facility] Stop: 07/11/18 08:01 Last Admin: 07/10/18 08:16 Dose: 1 mg Lorazepam (Ativan) 2 mg PO Q2H PRN PRN; Protocol PRN Reason: CIWA score > 8 but <15 Last Admin: 07/09/18 05:51 Dose: 2 mg Lorazepam (Ativan) 2 mg PO UD PRN; Protocol PRN Reason: CIWA score >/=15. Lorazepam (Ativan) 2 mg IV Q2H PRN PRN; Protocol PRN Reason: CIWA score > 8 but <15 Last Admin: 07/09/18 22:56 Dose: 2 mg Lorazepam (Ativan) 2 mg IV UD PRN; Protocol PRN Reason: CIWA score >/=15. Ondansetron HCl (Zofran) 4 mg IV Q8H PRN PRN PRN Reason: NAUSEA/VOMITING Quetiapine Fumarate (Seroquel) 100 mg PO BID [facility] Last Admin: 07/10/18 08:17 Dose: 100 mg Sodium Chloride () 5 - 15 ml IV UD PRN PRN Reason: SALINE FLUSH Last Admin: 07/10/18 12:59 Dose: 10 ml Thiamine [facility] ([facility]) [facility] Stop: 07/11/18 17:01 Last Admin: 07/10/18 16:09 Dose: 100 mg Medical Necessity - Tobacco Use Smoking Status: Never smoker Tobacco Use: Non-smoker Assessment/Plan All Active Problems Alcoholism /alcohol abuse (Acute) Alcohol withdrawal delirium, acute, hyperactive (Acute) Sinus tachycardia by electrocardiogram (Acute) 1. Alcohol withdrawal and bipolar disorder -He is a binge drinker with a blood alcohol level of 300 when he presented to the ER -He was placed on Librium as well as Ativan to control his symptoms, he has been doing well -It is difficult to get a straight answer from him about his compliance with medication he states that nothing is ever worked -He is supposed to be on Lamictal which is labeled as as needed which does not make sense as well as Topamax which is 200 mg twice daily and Klonopin 1 mg twice daily as needed as well as Wellbutrin 150 mg p.o. twice daily -He was started on Seroquel inpatient -He met with crisis today and I am unsure as to what the ultimate plan is. He did state to them that he is suicidal though he does not have a plan and he needs help. Will follow up with crisis when able to determine placement going forward 2. HTN/HLD -He is supposed be on Lipitor at home but unsure of his compliance -He is found to be hypertensive yesterday into the 160s, he was started on Norvasc 10 mg daily which will be continued. DVT: Ambulation Code Visit Inpatient E&M: 54196 Subs Hosp L2
[2018-07-11 02:25] VITALS: BP 143/95; PULSE 98; RESP 16; TEMP 37.2; O2SAT 98
[2018-07-11] MEDS: chlordiazePOXIDE 25 MG Capsule 50 MG PO (05:48)
[2018-07-11] MEDS: 0.9% NaCl Peripheral Flush Adult/Peds IV (05:50)
[2018-07-11 06:24] LABS: Anion Gap 6 (5-15); BUN 15 mg/dL (7-18); BUN/Creat Ratio 16.8 RATIO (10-20); Calcium,Total 8.5 mg/dL (8.5-10.1); Chloride 105 mmol/L (98-107); Creatinine, Serum 0.89 mg/dL (0.70-1.30); EST Glomerular Filtration Rate 93 mL/min (>60); Est Glom Filt Rate - Afr Amer 113 mL/min (>60); Glucose 97 mg/dL (74-106); Potassium 3.4 mmol/L (3.5-5.1); Sodium Level 140 mmol/L (136-145)
[2018-07-11 08:25] VITALS: BP 122/84; PULSE 99; RESP 18; TEMP 36.9; O2SAT 96
[2018-07-11] MEDS: QUEtiapine 100 MG Tablet PO (09:00)
[2018-07-11] MEDS: amLODIPine 10 MG Tablet PO (09:00)
[2018-07-11] MEDS: Thiamine Hydrochloride 100 MG Tablet PO (09:00)
[2018-07-11] MEDS: Folic Acid 1 MG Tablet PO (09:00)
[2018-07-11 09:09] VITALS: BP 122/84; PULSE 99; RESP 18; TEMP 36.9; O2SAT 95
--- NOTE | 2018-07-11 09:51 | DCINST_ITS ---
- Discharge Diagnoses Current Active Problems: Current Active and Chronic Problems Alcoholism /alcohol abuse (Acute) Alcohol withdrawal delirium, acute, hyperactive (Acute) Sinus tachycardia by electrocardiogram (Acute) Bipolar disorder (Chronic) You will use the following diet at home:: Regular Your food should be the consistency of: Regular Your liquids should be the consistency of: Regular/Thin Discharge Activity: Return to Normal Activity, No Restrictions Call your doctor if you observe: Fever of 101 or Higher, Shortness of breath, Dizziness, Fainting spells, Swelling in the ankles, Chest pain, Increased pal pitations (irregular heartbeat) Allergies/Adverse Reactions: Allergies iodine Allergy (Verified 07/08/18 19:19) Hives Penicillins Allergy (Verified 07/08/18 19:19) Hives morphine Adverse Reaction (Verified 07/08/18 19:19) HALLUCINATIONS Medications to take at Discharge Atorvastatin Calcium [Lipitor] 10 mg PO QHS 10/09/16 Clonazepam [Klonopin] 1 mg PO BID PRN PRN 10/09/16 Trazodone HCl 100 mg PO QHS 10/09/16 proMETHazine tablet [Phenergan tablet] 25 mg PO Q6H PRN PRN #10 tablet 06/26/17 Amlodipine [Norvasc] 10 mg PO DAILY #30 tablet 07/11/18 Bupropion HCl [Wellbutrin Xl] 150 mg PO DAILY #0 07/11/18 The following prescriptions were given: Amlodipine [Norvasc] 10 mg PO DAILY #30 tablet Primary Care Physician: Tommy Leonard MD [Primary Care Provider] - Please follow up with your Primary Care Physician in: 3-5 days Test Results: Test results from this visit will be discussed in further detail at your follow- up appointment, if applicable.
--- NOTE | 2018-07-11 10:32 | DS.PCM_ITS ---
Discharge Date and Diagnosis - Problem List Patient Problems: Active and Suspected Problems Alcoholism /alcohol abuse (Acute) Psychiatric disorder (Suspected) Alcohol withdrawal delirium, acute, hyperactive (Acute) Sinus tachycardia by electrocardiogram (Acute) Date of Admission: 07/08/18 Date of Discharge: 07/11/18 - Primary Discharge Diagnosis Active and Suspected Problems Alcoholism /alcohol abuse (Acute) Psychiatric disorder (Suspected) Alcohol withdrawal delirium, acute, hyperactive (Acute) Sinus tachycardia by electrocardiogram (Acute) - Secondary Discharge Diagnosis Chronic Problems Bipolar disorder (Chronic) Hospital Course and Treatment Imaging Results: CXR: IMPRESSION: No acute thoracic pathology. Consultations 07/08/18 23:31 Consult: Mental Health/Crisis Routine Reason for consult?: bipolar disorder, alcoholism Date Notified:: 07/10/18 Time notified:: 09:23 Operations: None Procedures: None Summary of Care Provided: Per HPI: The patient is a 57 year old M who was seen in the emergency room at [facility] after making a statement to the triage desk that he did not want to live like this anymore, patient is a binge drinker, he states that for the last 3 weeks he has been binge drinking-the exact amount of alcohol the patient states that he drinks varies from what he told me and what he told the emergency room physician. It is also difficult to get information from the patient, he is vague at times and is a poor informant. Patient states he has a history of bipolar disorder-he has been bipolar for 30 years However, patient denies ever being placed on lithium or Depakote. Patient is on several medications from his psychiatrist who he sees in town here, patient is not happy because he has to take multiple meds so he does not take his medication most of the time-again patient was vague about what medicines he actually does take at home-he indicated to me that he does take Klonopin and occasionally Lamictal if he cannot sleep. Patient came to the ER today to get help with his alcoholism. Work-up in the emergency room included labs which showed the patient's blood alcohol level to be 330, he had positive methamphetamines in the urine (patient states he takes Wellbutrin at times which had been prescribed to him, he denies any usage of methamphetamines), potassium was slightly low at 3.2, glucose was 181. Patient had a chest x-ray which showed no acute disease. Patient was very anxious and tremorous in the emergency room, he was given IV Ativan twice with some relief of his symptoms. I had a long discussion with the patient, I think the patient's problems in addition to his alcoholism include poorly treated psychiatric disease. I talked to him about seeing crisis while he was in the hospital here and he agreed to see them. Patient will be admitted for alcohol withdrawal and bipolar disorder-I am somewhat puzzled that the patient has symptoms of alcohol withdrawal with a 330 ethanol level however. Hospital Course: 1. Alcohol withdrawal and bipolar [id number] male with a history of bipolar disorder who has been noncompliant with his medications at home pres ented with a blood alcohol level of 300. He said that he been binge drinking and just was done and he wanted to give up. He never specifically said that he was suicidal until he met with crisis at that time he did not have a plan. He initially had diaphoresis and tremors which did improve with Librium and Ativan. He was also started on Seroquel for his bipolar disorder because he had been noncompliant with his other medications. He resolved with his alcohol withdrawal fairly well and quickly however he met with crisis at which point he was denied inpatient stabilization because they felt that even though he was suicidal because he did not have a plan he did not meet criteria for inpatient placement. They are recommending that he be discharged home and they will communicate with him on a daily basis until he goes to a partial hospitalization program on Saturday at 1530. He has at home prescriptions and medications for Wellbutrin, trazodone, Topamax, Lamictal, and I did not want to give him another prescription of the medication that he could potentially overdose on. I discussed with him to not take his Lamictal or Topamax and I cut his Wellbutrin dose from 150 mg twice daily to 150 mg daily on discharge in the hopes to restart him on a medication without overdosing. He can take his trazodone as needed at home for sleep and he will follow-up on Saturday for possible placement on a more stabilizing medication such as lithium or scheduled Lamictal. For some reason it appears that his Lamictal initially will schedule as needed. This was discussed with him and crisis, and he understood and is in agreement with the plan. 2. HTN/HLD-he did develop some hypertension during his stay he was initially 140s climbed up to 160s and he does have a history of hyperlipidemia and is on Lipitor for it. I started him on 10 of Norvas for now and will he will need to follow-up with his primary care physician as an outpatient for further blood pressure monitoring. Patient Problems: Active and Suspected Problems Alcoholism /alcohol abuse (Acute) Psychiatric disorder (Suspected) Alcohol withdrawal delirium, acute, hyperactive (Acute) Sinus tachycardia by electrocardiogram (Acute) Objective: General: Alert, Oriented x3, Cooperative, No apparent distress, HEENT: Atraumatic, PERRLA, EOMI, Normocephalic Oral: Dry Mucosa Neck: Supple, No JVD Lungs: Clear to auscultation, Normal air movement, No rhonchi, No wheeze, No rales Cardiovascular: Regular rate, Regular Rhythm, Normal S1, Normal S2, No murmurs Abdomen: Soft, Non Tender, Non-Distended, No Hepato-splenomegaly Extremities: No edema, Capillary Refill Less than 3 Seconds Skin: No rashes, No breakdown Neurological: Neuro grossly intact, Sensory exam intact to light touch and pain Psych/Mental Status: Normal affect, appropriate - Physical Exam Vital Signs Temp Pulse Resp BP Pulse Ox 98.4 F 99 18 122/84 H 95 07/11/18 09:09 07/11/18 09:09 07/11/18 09:09 07/11/18 09:09 07/11/18 09:09 Oxygen Delivery Method Room Air Weight: 186 lb 6.4 oz Body Mass Index (BMI) 27.9 Intake and Output for Last 24 Hours 07/09/18 07/10/18 07/11/18 23:59 23:59 23:59 Intake Total 1650 / 1650 2918 / 2918 700 / 700 Balance 1650 / 1650 2918 / 2918 700 / 700 Laboratory Tests Past 24 Hrs 07/10/18 07/11/18 06:20 05:55 Sodium 140 Potassium 3.4 L Chloride 105 Carbon Dioxide 29.0 Anion Gap 6 BUN 15 Creatinine 0.89 Estim Creat Clear Calc 88.60 Est GFR (MDRD) Af Amer 113 Est GFR (MDRD) Non-Af 93 BUN/Creatinine Ratio 16.8 Glucose 97 Calcium 8.5 Magnesium 1.5 L Discharge Activity: Return to Normal Activity, No Restrictions Call your doctor if you observe: Fever of 101 or Higher, Shortness of breath, Dizziness, Fainting spells, Swelling in the ankles, Chest pain, Increased palpitations (irregular heartbeat) Home Medications: Medications to take at Discharge Atorvastatin Calcium [Lipitor] 10 mg PO QHS 10/09/16 Clonazepam [Klonopin] 1 mg PO BID PRN PRN 10/09/16 Trazodone HCl 100 mg PO QHS 10/09/16 proMETHazine tablet [Phenergan tablet] 25 mg PO Q6H PRN PRN #10 tablet 06/26/17 Amlodipine [Norvasc] 10 mg PO DAILY #30 tablet 07/11/18 Bupropion HCl [Wellbutrin Xl] 150 mg PO DAILY #0 07/11/18 Following Prescrptions Were Given to Patient: Amlodipine [Norvasc] 10 mg PO DAILY #30 tablet Primary Care Physician: Tommy Leonard MD [Primary Care Provider] - Please follow up with your Primary Care Physician in: 3-5 days Disposition: Home Minutes spent on discharge:: 35 Patient Condition:: Stable Medical Necessity - Tobacco Use Smoking Status: Never smoker Tobacco Use: Non-smoker Meaningful Use Info Meaningful Use Diagnoses (Choose all that apply): None applicable Code Visit Inpatient E&M: 70622 Disch Hosp
== END 2018-07-11 11:13 | disposition home or self-care (01) | DRG 775 ==
LOC: ED 21:54 → MS3 23:19
PROVIDERS: Admitting Provider Internal Medicine; Emergency Provider Emergency Medicine; Family Provider Family Medicine; PCP Family Medicine; Visit Provider Family Medicine
DX: F10.231 Alcohol dependence with withdrawal delirium (principal); Z91.14 Patient's other noncompliance with medication regimen; Y90.8 Blood alcohol level of 240 mg/100 ml or more; F31.62 Bipolar disorder, current episode mixed, moderate; I10 Essential (primary) hypertension; E78.5 Hyperlipidemia, unspecified; Z79.899 Other long term (current) drug therapy; E87.6 Hypokalemia
CPT/HCPCS: 36415; 71046; 80048; 80307; 80320; 81001; 83735; 85025; 93005; 99285; J7030; J7040; A4216; G0480

== ENCOUNTER 2018-07-22 09:00 | Outpatient (RCR) | payer MEDICAID, SELFPAY ==
[2018-07-08 23:32] VITALS: BMI 27.9
--- NOTE | 2018-07-22 09:07 | BH.SGPN.GN ---
Behaviors/Verbalizations/Mental Status: []Client alert and oriented, casual dress, hygiene tended to. Eye contact good. Motor activity appropriate. Speech within normal limits. Affect congruent, mood anxious and positive. Tearful at times. Thoughts linear, logical, no signs of hallucinations or delusions. Reviewed client?s symptom tracker, no signs of suicidal ideation, plan, or intent as of today. Client Response/Progress/Benefit: []Pt was engaged in session as evidenced by pt listening attentively to others and openly sharing with the group. Emotion for today is positive and hopeful. Pt indicated that he has been struggling with loneliness since he moved from [facility] to live with his mom. He indicated that he enjoyed living in [place] and enjoyed his job, but now doesn't have local supports. Pt noted mental health positive as being able to manage his anxiety this weekend when he came home from spending time with family in [place], [place]. Progress not observed given today is pt's first day in IOP. Continued IOP tx recommended to decrease anxiety, increase positive supports, and prevent decompensation. Narrative Note: []
--- NOTE | 2018-07-22 10:20 | BH.SGPN.GN ---
Behaviors/Verbalizations/Mental Status: [] Eye contact is good. Motor activity is appropriate. Appearance is casual. Speech is Appropriate. Mood is anxious. Affect is congruent. Thoughts are linear and logical. No evidence of psychosis. Client Response/Progress/Benefit: [] Pt was an active participant in group discussion. Processed quote of the day with peers. Group discussed the MH benefits to having open and clear communication with support and providers which included; it avoids mind-reading, decreases chances of confusion, helps us get our needs met, helps us get our goals met, helps us manage our symptoms (as support understands appropriate responses). Group also discussed the barriers that tend to impact clear and open communication which include; depression, anxiety, fear, embarrassment, pride, guilt, negative thoughts, feeling that if others know who we truly are they will not like us, and being vulnerable. Pt was attentive during psycho-education on communications styles (aggressive, passive, passive-aggressive, and assertive). Also provided input on the pros and cons to each communication style. Narrative Note: []
--- NOTE | 2018-07-22 11:15 | BH.SGPN.GN ---
Behaviors/Verbalizations/Mental Status: []Client alert and oriented, neatly dressed and groomed. Eye contact good. Motor activity appropriate. Speech within normal limits. Affect congruent, mood anxious. Thoughts linear, logical, no signs of hallucinations or delusions. Client Response/Progress/Benefit: []Client active participant AEB providing input throughout and attentive to others. Client reported he is a passive communicator which has resulted in client isolating, losing self-confidence, and feeling more depressed. Client stated he wants to become more assertive and get back to his old self. client engaged in activity and able to connect how ineffective communication negatively impacts mental health and relationships. Client identified his communication goal which is to force himself to get out of his house more to be more social with others and prevent isolation. Client seemed to benefit from increased insight into how his communication style impacts his mental health and relationships. Client?s first day of IOP. Client to continue IOP to prevent decompensation and reduce depressive symptoms.
--- NOTE | 2018-07-22 11:55 | BH.COMM ---
Communication Note - Communication with Client Communication Note: Met with pt to complete initial paperwork prior to starting IOP. No significant changes since pre-admission screening. Denies any suicidal ideations, plan, or intent. No alcohol use since 07/08/18.
--- NOTE | 2018-07-23 09:10 | BH.SGPN.GN ---
Behaviors/Verbalizations/Mental Status: []Client alert and oriented, neatly dressed. Eye contact good. Motor activity appropriate. Speech within normal limits. Affect congruent, mood euthymic and positive. Thoughts linear, logical, no signs of hallucinations or delusions. Reviewed client?s symptom tracker, no risk for suicidal ideation, plan, or intent as of 07/23/18. Client Response/Progress/Benefit: []Pt was an active participant in group discussion, providing input and openly processing with the group. Emotion for today is hopeful. Pt noted progress as leaving IOP yesterday and completing several responsibilities he has been avoiding. 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 Pt stated his stressor to be deciding where he wants to move to increase his support system. Progress noted by pt applying healthy skills learned. Continued IOP tx recommended to challenge distorted thoughts, prevent decompensation, and learn healthy coping skills. Narrative Note: []
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
--- NOTE | 2018-07-23 11:21 | BH.SGPN.GN ---
Behaviors/Verbalizations/Mental Status: [Client alert and oriented, casually dressed and appropriately groomed. Eye contact good. Motor activity appropriate. Speech within normal limits. Affect congruent, mood euthymic. Thoughts linear, logical, no signs of hallucinations or delusions.] Client Response/Progress/Benefit: [Client responded well to session, engaged in activity, and providing some input to discussion, at times distracted by self or phone. Group identified the benefits of addressing stigma which included; increased self-confidence and self-acceptance, improved willingness to ask for help, improved relationships and feeling more supported, and less self-deprecation. Client helped the group identify thoughts and behaviors people engage in that reinforce stigma. Client reported she has struggled with negative self-talk and feeding into societal expectations related to mental health which reinforces stigma in pt life. Shared how her social environment has influenced mental health stigma in the past. Group brainstormed strategies to combat social and perceived stigma which included; changing personal language used, sharing positive mental health related media, communicating with supports to help them better understand mental health, and increasing psychoeducation of self and others. Client reported she will practice being more self-aware of the types of language she uses and practice using more positive self-talk as a means to combat stigma. Appeared to benefit from increasing awareness of ways current behaviors may reinforce stigma and how to combat stigma. Will continue IOP tx to further reduce anxiety and depression, improve mood stability, as well as increase the use of calming skills.] Narrative Note: []
--- NOTE | 2018-07-23 12:44 | BH.MDN ---
Multi-Disciplinary Note - Note 60-min Individual Time Started:: 10:20 Date: 07/23/18 Purpose of session/treatment goals addressed:: Reviewed current symptoms. Discussed progress in IOP. Began to work on developing treatment plan. Eye Contact:: Good Motor Activity:: Appropriate Appearance:: Casual Speech:: Appropriate Mood:: Anxious, Depressed Affect:: Congruent Thoughts:: Linear, Logical, No evidence of hallucinations/delusions noted Staff Interventions:: Utilized UT techniques to elicit change behaviors. Active listening and open-ended questions to encourage elaboration. Client Response:: Pt reports that his primary goal is to get back to the way I used to be. Discussed how he was confident and outgoing in the past. Reports biggest obstacle to reaching this goal is poor self-esteem, lack of confidence, unsure of his future, unhealthy coping skills, and lonlieness. Tearful at times. Reports I'm all alone. Hopeless and limited purpose in his life. Limited support in the area. Tearful mostly when discussing his partner's 8 years ago and the overwhelming stress and difficulties caring for his dying mother. Reports that she was experiencing some cognitive decline and would often say hurtful things towards him. Risks/Concerns:: No risks or concerns noted. Progress Toward Goals/Plan:: Progress noted per pt report. Reports that after his first IOP group he felt more motivated and hopefull about the future. States that he really enjoyed the support and encouragment. Depression, anxiety, and stress continue in impact functioning. Tearful. Isolative and avoidant outside of this program. Significant lonliness mostly at home which lead to depression and passive thoughts of dealth and urges to self-medicate with alcohol. Will continue in IOP to maintain safety, stablize mood, increase support, and decreased feelings of isolation and lonlienes. Time Stopped:: 11:15
--- NOTE | 2018-07-24 09:05 | BH.SGPN.GN ---
Behaviors/Verbalizations/Mental Status: []Client alert and oriented, neatly dressed and groomed. Eye contact good. Motor activity appropriate. Speech within normal limits. Affect congruent, mood euthymic. Thoughts linear, logical, no signs of hallucinations or delusions. Reviewed client?s symptom tracker. Client indicated a 1/5 for thoughts of suicide and 0/5 for risk for suicide. Denies plan or intent as of 07/24/18. Client Response/Progress/Benefit: []Client responded well to session, engaged throughout and providing supportive statements. Client reports feeling ?very positive? today as he shared since coming to group he has more hope. Client?s current mental health wins include not isolating after he leaves IOP, staying busy, and being more productive throughout the day. Client stated he was isolating all day every day prior to Saturday. Client?s current mental health stressor is that he is having some ambivalence about staying in [place] or moving to be closer to family. Client appeared to benefit from connecting with peers and reflecting on positives. Progress noted in client?s improved outlook. Client to continue IOP to prevent decompensation, reduce depressive symptoms, and increase coping skills.
--- NOTE | 2018-07-24 10:13 | BH.SGPN.GN ---
Behaviors/Verbalizations/Mental Status: [Client alert and oriented, casual dress, hygiene tended to. Eye contact good. Motor activity appropriate. Speech within normal limits. Affect congruent, mood anxious, dysthymic. Thoughts linear, logical, no signs of hallucinations or delusions.] Client Response/Progress/Benefit: [Pt receptive to session, provided input and remained an active listener throughout discussion on stress. Able to brainstorm with the group positive and negative aspects of stress on physical and mental health. Pt participated in identifying current stressors impacting mental health. Pt's current stressors include: mental health, loneliness, not knowing what to do with his mother?s house, grief, and substance use recovery. Appeared to benefit from gaining awareness of own current stressors and learning about the impact stress has on overall wellbeing. Progress noted in improved ability to identify impact of stressors on maintaining mental health and wellbeing. Recommended continued IOP tx to improve healthy coping skills, improve mood stability, decrease depression, and prevent decompensation.] Narrative Note: []
--- NOTE | 2018-07-24 14:52 | BH.MDN ---
Multi-Disciplinary Note - Note 60-min Individual Time Started:: 12:20 Date: 07/24/18 Purpose of session/treatment goals addressed:: The purpose of this session was to gather information on client's current stressors, symptoms, and treatment goals. Another goal was to build rapport, provide additional support resources, and give homework. Motor Activity:: Appropriate Appearance:: Neat Speech:: Appropriate, Other - repetitive Mood:: Euthymic, Other - grief and regret showing at times Affect:: Congruent - tearful at times Thoughts:: Linear, Logical, No evidence of hallucinations/delusions noted Staff Interventions:: Therapist used active listening and open-ended questions to explore client's current stressors, symptoms, and supports. Therapist used strengths perspective to build rapport and help client identify positives and personal resilience factors. Therapist provided emotional validation on grief and explored techniques that have helped in the past. Therapist provided psychoeducation on depressive maintenance cycles and symptoms. Therapist assisted client in identifying overall treatment goals. Therapist gave client homework to engage in the behavioral activation goals he identified. Therapist gave client resources for a LGBTQ support group, [facility], and AA. Client Response:: Client responded well to session, open to meeting with therapist. Client shared he is ready to move on and get better. Prior to coming to [facility], client reported severe depression, isolation, and binge drinking which resulted in client seeking detox at [facility]. Client has been through numerous losses and hardships within the last few years. Both of client's parents and his partner of 14 years . Client shared he lives with regret and uncertainty every day because client reports belief his partner may have completed suicide. Client shared he is two weeks sober and that he feels much better. Client reports improved energy and mood since he stopped drinking. Client declined to attend AA at this time, but he reports having a close friend that is like a sponsor. Client shared his biggest presenting problem is his loneliness, sadness, and social isolation. Client reported his feelings of loneliness are what led to the most recent binge. Client stated he has gained more hope and motivation since starting [facility] and it has empowered client to get out of his house more often. Client set a weekly goal to exercise three times. Client was receptive to the LGBTQ support group and [facility]. Client willing to complete tracking of goals for homework. Risks/Concerns:: Client denies any active or passive suicidal ideations, plan, or intent as of 07/24/18. Client shared he had suicidal ideations about two weeks ago before he went to the ER for alcohol withdrawal. Client shared Oh no! I don't have those thoughts. Future oriented and optimistic about his recovery. Progress Toward Goals/Plan:: No progress noted yet as client just started IOP. However, client appears motivated to engage in treatment and reports he is ?looking forward to moving forward.? Client has been depressed for the past several months during which time client described he was isolating and binge drinking heavily for 4 weeks. Client shared he went to the hospital to get detox ?which was my choice? and that he is now determined to be more social and get better. Client currently endorses crying spells, isolative behaviors, difficulty concentrating, and a depressed mood. Client is currently two weeks sober. Client receptive to homework and goal setting. Client?s identified his treatment goals to be reduce depression, process his grief, be more social, and ?be strong like I was before.? Client would also like to gain back his confidence and comfort around people. Client to continue IOP to prevent decompensation and promote mood stability. Time Stopped:: 13:15
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
--- NOTE | 2018-07-24 14:55 | BH.MTP ---
Master Treatment Plan - Patient Information Program Physician:: Segundo Baird Primary Therapist:: Priya Ochoa - Psychiatric Diagnoses Psychiatric Diagnoses:: Major depression, recurrent; bereavement; adjustment disorder with anxiety; alcohol use disorder Diagnosis Code(s):: F33.2 - Estimated LOS Estimated LOS (in weeks):: 6 Problem/Goal #1 - Problem/Goal #1 Stated Goal:: Client will reduce depressive symptoms, hopelessness, and isolation while increasing social supports. Description of Barriers: Limited supports, recently sober and declines wanting to attend at this time, history of isolative behaviors, difficulty with memory, loneliness, and ongoing grief over the numerous losses he has faced. Additional barriers include guilt, crying spells, and limited coping skills. Functional Impact: Client is a 57-year-old male with a history of depression and bipolar disorder, per his report. Client was recently admitted to [facility] for alcohol detoxification treatment after a reported four-week binge drinking episode. Client reported he was self-medicating with a half of a fifth of vodka daily to cope with his loneliness and depression. Client was referred to [facility] post inpatient detox due to worsening mental health symptoms over the past two years. Client's father and mother both within the last two years which was a trigger for his recent depressive episode. Client moved from [place] to [place], [place] to take care of his mother, and now client has no supports in the area. Client endorses isolative behaviors, loneliness, daily panic attacks, anhedonia, low energy, increased sleep, decreased appetite, hopelessness, and racing thoughts. Client shared prior to going to the hospital I locked myself in my house and drank all day. Client reported his symptoms have been impacting his ability to complete ADLs, function at his baseline, and impacting his overall quality of life. Goal Relevant Strengths/Supports: Client is a kind, humorous, and motivated individual who presents to [facility] with determination to improve his mental health. Client is receptive to help and recognized that I can't do this by myself which prompted client to seek higher level of care. Client went through alcohol detox and has not drank in over two weeks. Client is open to increasing his social supports. Client has family in [place] that he is close with and a good friend from [place] who is a strong support as well. - Objectives Objective #1 Stated Objective: Client will increase social activity to at least one additional activity per week to reduce isolation and increase positive supports. Interventions: Therapist will help client explore social connection opportunities, and assist client identifying the benefits of increased social engagement. Therapist will assist client in setting weekly goals to get client out of the house and engaging in activities he enjoys. Therapist will provide education on maintenance cycles for depression and help client learn how to break unhealthy maintenance cycles. Therapist will provide area resources that promote emotional well-being and offer positive support. Discharge Criteria: Client will have achieved this objective when can identify attending at least one social activity of interest weekly and report reduced isolation. Target Date: 09/02/18 Review Date: 08/21/18 Status: open Objective #2 Stated Objective: Client will learn and utilize 2-3 healthy coping strategies to manage depressive symptoms and grief as shown by reduced DSM-5 cross-cutting symptom measure score for depression and reduced use of unhealthy coping skills (i.e drinking). Interventions: Through group and individual sessions, therapist will assist client in learning internal coping strategies to manage depressive symptoms, along with helping client identify triggers. Therapist will help client identify strategies to replace drinking and prevent relapse. Therapist will help client set SMART goals for behavioral activation and encourage opposite action when client feels like isolation. Discharge Criteria: Client will have achieved this goal when his DSM-5 symptoms for depression have decreased and he can verbalize and has practiced at least 2 healthy coping strategies. Target Date: 09/02/18 Review Date: 08/21/18 Status: open Problem/Goal #2 - Problem/Goal #2 Stated Goal:: Reduce overall frequency, intensity, and duration of the anxiety so that daily functioning is not impaired. Description of Barriers: Limited supports, recently sober and declines wanting to attend at this time, history of isolative behaviors, difficulty with memory, loneliness, and ongoing grief over the numerous losses he has faced. Additional barriers include guilt, crying spells, and limited coping skills. Functional Impact: Client is a 57-year-old male with a history of depression and bipolar disorder, per his report. Client was recently admitted to [facility] for alcohol detoxification treatment after a reported four-week binge drinking episode. Client reported he was self-medicating with a half of a fifth of vodka daily to cope with his loneliness and depression. Client was referred to [facility] post inpatient detox due to worsening mental health symptoms over the past two years. Client's father and mother both within the last two years which was a trigger for his recent depressive episode. Client moved from [place] to [place], [place] to take care of his mother, and now client has no supports in the area. Client endorses isolative behaviors, loneliness, daily panic attacks, anhedonia, low energy, increased sleep, decreased appetite, hopelessness, and racing thoughts. Client shared prior to going to the hospital I locked myself in my house and drank all day. Client reported his symptoms have been impacting his ability to complete ADLs, function at his baseline, and impacting his overall quality of life. Goal Relevant Strengths/Supports: Client is a kind, humorous, and motivated individual who presents to [facility] with determination to improve his mental health. Client is receptive to help and recognized that I can't do this by myself which prompted client to seek higher level of care. Client went through alcohol detox and has not drank in over two weeks. Client is open to increasing his social supports. Client has family in [place] that he is close with and a good friend from [place] who is a strong support as well. - Objectives Objective #1 Stated Objective: Client will identify 2-3 anxiety and stress triggers and 2 calming coping skills to reduce anxiety and increase emotional regulation. Interventions: Therapist will help client increase awareness of anxiety and stress triggers and educate client on ways anxiety impacts overall health. Therapist will teach client various calming strategies to promote emotional regulation and reduction of anxiety. Therapist will assist client in identifying warning signs and triggers. Therapist will discuss the importance of utilizing healthy coping skills to replace drinking. Discharge Criteria: Client will have accomplished this goal when can report at least 2 triggers for anxiety and state using 2 calming strategies to manage symptoms. Target Date: 09/02/18 Review Date: 08/21/18 Status: open Objective #2 Stated Objective: Client will reduce anxious symptoms as evidenced by decrease in score on DSM 5 cross-cutting measure. Interventions: Through group and individual sessions client will learn healthy coping strategies, increase awareness of anxious thinking pattens and triggers to anxiety, and learn how to more effectively manage stress daily. Discharge Criteria: Client has met this goal when the DSM 5 cross cutting measure for anxiety has decreased. Target Date: 09/02/18 Review Date: 08/21/18 Status: open
--- NOTE | 2018-07-25 11:29 | BH.NA_ITS ---
Physical Data - Vital Signs Pulse Rate: 76 Respiratory Rate: 14 Blood Pressure: 101/74 - Height/Weight Height: 1.73 m Weight:: 81.647 kg Weight in Pounds: 180.0 lbs Current Medication Compliance - Medication Compliance Do you take your medication as prescribed?: Yes Do you need assistance with taking medication?: No Have you had side effects from medication?: No Nutritional History - Appetite Nutritional Instructions:: If client shows signs of a swallowing problem, weight change of 10 pounds or more in the last month, or is on a diabetic diet, the physician will review and request a dietitian consult, as appropriate. All unintentional weight loss will be referred to the physician for decision on need for dietitian consult. Describe your appetite:: Good Have you noticed a change in your eating habits lately?: No Functional Assessment - Sleep Pattern Describe any problems with sleeping: Denies difficulty falling or staying asleep. - Activities Motor Activity:: Functional Sensory/Communication Assess - Dental Problems Do you have any dental problems?: Other dental devices - Vision Problems Do you have any vision problems?: Glasses - Hearing Problems Do you have any hearing problems?: Minimal difficulty - Communication Problems Do you have difficulty understanding what people are saying?: No Do you have trouble putting your thoughts into words or expressing what you want to say?: No Do people ever have trouble understanding what you say?: No What is your primary language?: Arabic Learning Assessment - Education What is your level of education?: Some College - Learning Barriers Learning Barriers:: Ready to learn Medical Problems/History - Cardiac Conditions Cardiovascular: Hypertension - Pain Assessment Do you have acute or chronic pain?: No - Additional History Additional comments:: see PMHx in Summary Surgical History - Surgical History Have you had any surgeries? If so, list type and date:: Yes - colectomy w/ reversed colostomy Substance Abuse - Substance Abuse Please describe substance abuse in the last 30 days:: ETOH abuse, was drinking daily until 18 days ago when he went through medical detox. Mental Status Summary - Mental Status Significant Findings/Observations on Appearance and Mood:: Thong is a 57 year old male who is A&Ox4. Cooperative with interview. Appropriate grooming and hygiene with casual attire. Normal activity. Steady gait. Good eye contact. Speech is clear and of normal rate and volume. Intermittently tearful throughout interview. Logical associations. Normal process. No symptoms of delusions. Denies hallucinations, SI, and HI. Recent and remote memory intact. Good attention and concentration. Suicide Assessment - Suicidal Ideation Are you currently or have you been suicidal in the past?: Yes Suicidal Intentional Rating Scale (SIRS): Suicidal thoughts (past) Physician Notification: If Active suicidal thoughts/Will not contract for safety is checked, contact physician and document in the Physician Notification section below. Assault History/Potential - History of Assault Do you have a history of assaulting someone?: No Physician Notification: If yes, notify physician and document notification date and time below. Past Psychiatric History - MH Treatment Hx ECT Therapy Details:: N/A Describe (age, circumstance, etc) any past hospitalizations: N/A Fall Risk Assessment - Age Age: Less than 60 - Mental Status Mental Status: Willing & able to ask for assistance when needed - Physical Status Physical Status: No problems - Impairments Impairments: None - Elimination Elimination: Continent AND independent - Gait or Balance Gait or Balance: Walks independently - Hx of Falls History of falls in the past 6 months: No known history - Medications/Substances Psychotropics:: Antidepressants, Mood stabilizers, Anxiolytics (e.g. benzodiazepines) Medications/substances used within the past 24 hours or ordered to administer: 3 or more of the medications/substances listed above - Total Score Total Points:: 2 Physician Notification - Physician Notification Physician Notified: Segundo Baird Method of Notification: Face to Face Comments: treatment planning discussion RN Summary of Impressions - Impressions Recommendations: Include psychiatric and medical issues, treatment planning r ecommendations, and discharge planning needs. Impressions: Psychiatric Issues: MDD, binge drinking Impression: General Medical Conditions: HTN, diverticulitis s/p hemicolectomy, reversed colostomy - Level of Care How do the client's current symptoms and functional deficits support need for this level of care?: Thong notes a progressive decline in his mental health for the past 2 years, but more intense since his mother in January 2018. He was the primary caregiver for his mother, and he continues to live in his parents' home. He is not from the immediate area and has limited support. He notes that he has been binge drinking intermittently for several months, but has recently escalated to daily drinking about half a bottle of vodka; at the present, he is 2.5 weeks sober. He has been isolating and feeling hopeless and worthless, moreso when drinking. He called EMS while intoxicated 2.5 weeks ago because I knew I needed help and notes he was having passive thoughts of . He denies significant sleep or appetite changes recently. During his hospitalization, he was diagnosed with hypertension and has been compliant with medications as prescribed. Don seems to be motivated for change and is future oriented. He does notes several significant losses and unresolved grief. [facility] will provided him with social support and skills training to prevent further decompensation and gains promotion.
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
--- NOTE | 2018-07-25 14:42 | BH.DR.ITP ---
Initial Treatment Plan - Patient Information Visit Information: ADMISSION DATE: 07/22/18 EXPECTED LOS: 4-6 weeks Diagnoses:: Major depression, recurrent; bereavement; adjustment disorder with anxiety; alcohol use disorder - Problems/Symptoms Problem #1:: depression, bereavement Symptom:: low mood; grieving the of loved ones; feelings of hopelessness and suicidal thoughts Problem #2:: anxiety Symptom:: becoming stressed out and lacking coping skills Problem #3:: alcohol use disorder Symptom:: binge drinking as an unhealthy coping response
[2018-07-25 15:04] VITALS: BP 101/74; PULSE 76; RESP 14
--- NOTE | 2018-07-28 09:05 | BH.SGPN.GN ---
Behaviors/Verbalizations/Mental Status: [Eye contact is good. Motor activity is appropriate. Appearance is casual. Speech is Appropriate. Mood is euthymic, positive. Affect is congruent. Thoughts are linear and logical. No evidence of psychosis. Reviewed daily check in sheet and no reports of suicidal ideations or intent.] Client Response/Progress/Benefit: [Pt was attentive in group discussion, providing feedback and engaging when others shared. Emotions for today is positive and indicated that he has been able to see consistent improvements in overall mood since beginning the IOP program and receiving increased support from fellow participants. Pt reflected that current mental health wins include accomplishing several small goals around the house over the weekend rather than continuing to put the tasks off, as well as continuing to follow through with goal of not watching t.v. before bed. Pt indicates this has aiding in improving overall sleep levels and made him feel increasingly accomplished as well. Current stressor includes ongoing difficulties in deciding what to do about his current living situation. Benefited from support provided by the group and empathic responses given. Will continue in IOP to maintain stability, improve consistent skill application, reduce depressive sx, and prevent decompensation.] Narrative Note: []
--- NOTE | 2018-07-28 10:15 | BH.SGPN.GN ---
Behaviors/Verbalizations/Mental Status: []Client alert and oriented, neatly dressed and groomed. Eye contact good. Motor activity appropriate. Speech within normal limits. Affect constricted, mood euthymic. Thoughts linear, logical, no signs of hallucinations or delusions. Client Response/Progress/Benefit: []Client responded well to session, positive contributions and engaged in activity. Client appeared to connect with the topic of personal pitfalls and how they can prevent mental health progress. Client reported that overcoming pitfalls is not easy, but it is possible. Client shared to get on a better path ?you have to reach out for help.? Client identified examples of pitfalls such as not asking for help, fear of being alone, and habit. Client reported to get on the ?right path? and overcome pitfalls, one needs self-awareness. Client participated in the group activity and reported ability to manage his emotions by using positive self-talk statements and focusing on the group goal. Client agreed with peers that the group did better when they used communication and emotional regulation skills. Client appeared to benefit from increasing self-awareness and applying in the moment coping. Client progressing AEB increased motivation and reduced isolation. Client to continue IOP to further increase mood stability and coping skills.
--- NOTE | 2018-07-28 11:15 | BH.SGPN.GN ---
Behaviors/Verbalizations/Mental Status: []Pt eye contact good, neatly dressed, motor activity appropriate, speech normal rate and tone, mood anxious, congruent affect, thoughts linear and intact, no evidence of delusions or hallucinations. Client Response/Progress/Benefit: []Pt was engaged throughout session AEB pt providing input during discussion and attentive to peers. Pt completed a worksheet where he identified own personal pitfalls. Pt identified top 5 personal pitfalls to include: isolation, not taking medications, depression, difficulty saying no, and difficulty making decisions. Group worked together to identify strategies to overcome personal and general pitfalls which included: setting realistic expectations, positive self-talk, utilizing support system, identifying coping skills that are effective and not effective, reframing, and challenging negative thoughts. Pt identified he will practice challenging negative thoughts to decrease personal pitfalls. Benefited from identifying personal and general pitfalls and strategies to overcome these pitfalls. Will continue in IOP to decrease isolation, continue use of healthy coping and prevent decompensation. Narrative Note: []
--- NOTE | 2018-07-29 09:10 | BH.SGPN.GN ---
Behaviors/Verbalizations/Mental Status: [] Eye contact is good. Motor activity is appropriate. Appearance is casual. Speech is Appropriate. Mood is depressed. Affect is full. Thoughts are linear and logical. No evidence of psychosis. Reviewed daily check in sheet and no reports of suicidal ideations or intent. Client Response/Progress/Benefit: [] Pt was an active participant in group discussions. Provided appropriate feedback. Emotion for today is tired but positive. Shared with the group that he is getting back to feeling normal. Shared that he has noticed increased energy and motivation. Completed several tasks that he has been avoiding yesterday. Struggles at time with sleep however is starting new healthy routine. No anxiety attacks in the past week. Not ruminating or isolation. More social and more comfortable with himself and his current life. Loneliness continues to impact daily mood. Has not drank to self-medicate. Progress noted. Benefited from group support, encouragement, and feedback. Will continue in IOP to prevent decompensation, decrease isolative behaviors, increase emotion management strategies. Narrative Note: []
--- NOTE | 2018-07-29 10:15 | BH.SGPN.GN ---
Behaviors/Verbalizations/Mental Status: []Pt eye contact good, casually dressed, motor activity appropriate, speech normal rate and tone, mood euthymic, congruent affect, thoughts linear and intact, no evidence of delusions or hallucinations. Client Response/Progress/Benefit: []Pt engaged in session as evidenced by pt listening to others and providing input throughout. Pt reported when continue to do the same thing to solve problems it can lead to losing control and giving up. Pt stated we don't create all of our problems, but the way we react to a problem can worsen or create more problems. Pt worked cooperatively with peers during problem solving activity, able to work through problem by using A,B,C,D,E problem solving method. Pt seemed to benefit from learning about problem solving method and rehearsing problem solving skills in the moment. Pt to continue IOP level of care to decrease isolation, increase utilization of healthy coping, and prevent decompensation. Narrative Note: []
--- NOTE | 2018-07-29 11:18 | BH.SGPN.GN ---
Behaviors/Verbalizations/Mental Status: [Eye contact is good. Motor activity is appropriate. Appearance is casual, neat. Speech is Appropriate. Mood is anxious, dysthymic. Affect is congruent with mood. Thoughts are linear and logical. No evidence of psychosis.] Client Response/Progress/Benefit: [ Pt was an active participant in group activity and discussion, providing suggestions and support during the activity. Pt processed challenge activity with fellow participants and made connections with the barriers to problem solving encountered. Pt expressed that losing focus and not maintaining awareness of surroundings and others can be a barrier to effective problem-solving. Pt completed a problem-solving worksheet in which he identified a current problem impacting mental health as negative self-talk and developed a [id number] plan to address this problem which was reviewed within the small group. Pt identified barriers to include; lack of support in the area, difficulties deciding what he wants to do next with his life, and lack of belief in affirmations. Pt did well to brainstorm strategies for addressing this and was open to feedback from the group. Benefited from group as he was able to create a personalized plan which pt identified barriers and steps to work on a mental health problem. Will continue in IOP tx to decrease mh sx, increase healthy coping skills, and continue to maintain stability. ] Narrative Note: []
--- NOTE | 2018-07-29 14:33 | BH.MDN_ITS ---
Multi-Disciplinary Note - Note 60-min Individual Time Started:: 12:27 Date: 07/29/18 Purpose of session/treatment goals addressed:: The purpose of this session was to address current symptoms, emotions, and grief. Another goal was to identify a behavioral activation goal for the week. Eye Contact:: Good Motor Activity:: Appropriate Appearance:: Neat Speech:: Tangential Mood:: Euthymic, Other - grieving Affect:: Congruent - tearful at times when discussing the loss of his loved ones. Thoughts:: Circular, No evidence of hallucinations/delusions noted Staff Interventions:: Therapist used active listening and open-ended questions to explore client's current stressors, symptoms, and emotions. Therapist helped client process his grief and normalized client?s emotions associated with grief. Therapist provided psychoeducation on depressive maintenance cycles and strategies to break out of negative maintenance cycles. Therapist assisted client in identifying a behavioral activation goal for tomorrow and gave client a handout for homework. Therapist offered to help get client connected to grief counseling in addition to IOP, but client declined at this time. Client Response:: Client responded well to session, receptive to meeting with therapist. Client stated he has gained more hope and motivation since starting IOP and it has empowered client to get out of his house more often. Client reported he has been filling in the chart provided by therapist and that helps client keep track of the activities and tasks he accomplishes each day. Client shared he has been very active at his house with organizing and that he has also improved his sleep schedule. Client connected with the depressive maintenance cycle and recognized that by engaging in opposite action client is breaking negative cycles. Client shared before he got help, he would tell himself things like ?what the hell, it doesn?t matter anyway? which would reinforce depression and isolation. Client now reminds himself that getting out of the house is he lpful. Client wants to get back to working out and made a goal to go to the gym tomorrow after IOP. Client became tearful several times throughout session when talking about the loss of his loved ones. Client stated after his mother ?that?s when it all fell apart.? Client declined ever receiving grief counseling, and he was open to the referral, but not ready to engage in that service yet. Client connected with the different stages of grief and the maladaptive coping skills that followed his emotions. Client continues to have conflicting emotions about the losses. Client shared belief he is doing well to process grief, but he would like to continue to find acceptance. Risks/Concerns:: Client denies any suicidal ideations, plan, or intent as of 07/29/18. Progress Toward Goals/Plan:: Client is beginning to make progress towards his treatment goals as shown by client?s report of reduced isolation, increased hope, and improved mood. Client reports being more social and motivated since starting IOP. Client continues to decline drinking or urges to drink. Client receptive to homework and goal setting. Client continues to endorse crying spells, grief, and difficulty concentrating. Client also struggles with feelings of guilt and loneliness. Client to continue IOP to prevent decompensation and increase mood stability. Time Stopped:: 13:22
--- NOTE | 2018-07-30 09:10 | BH.SGPN.GN ---
Behaviors/Verbalizations/Mental Status: [] Eye contact is good. Motor activity is appropriate. Appearance is casual. Speech is Appropriate. Mood is euthymic. Affect is full. Thoughts are linear and logical. No evidence of psychosis. No reports of suicidal ideations. Client Response/Progress/Benefit: [] Pt was an active participant in group discussion. Emotion for today is tired. Shared that had a difficulty time getting to group today and wanted to stay home. Fought that urge and was proud he made it in today. He is starting to feel better emotionally and has increased self-esteem. Had a plan to go away for the 14 of August with friends however turned them down. He states that he would be around alcohol and feels that it would set himself up for failure. Praised for making a tough decision. Gave some examples of utilizing thought stopping and reframing which helped with his anger. 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 Progress noted. Benefited from group support and encouragement. Will continue in IOP to prevent decompensation, decrease isolation, and learn coping skills. Narrative Note: []
--- NOTE | 2018-07-30 10:15 | BH.SGPN.GN ---
Behaviors/Verbalizations/Mental Status: []Pt eye contact good, casually dressed, motor activity appropriate, speech normal rate and tone, mood anxious, congruent affect, thoughts linear and intact, no evidence of delusions or hallucinations. Client Response/Progress/Benefit: []Client responded well to session, engaged throughout activity, providing input throughout discussion. Provided insight regarding topic of social supports. Client reported it's important to communicate with support people what you need. Client shared he knows which support people he can reach out to based on what type of support he needs. Client identified increased negative thinking and relapse as potential consequences of not having a support system. Group identified benefits of social support as improving self-confidence, gaining different perspectives, being challenged, and comfort with knowing there is someone can talk to if in need. Client was engaged during the group activity and was encouraging to others. Appeared to benefit from gaining awareness of barriers that keep people from seeking social support as well as connecting with peers. Client to continue IOP to prevent decompensation, decrease isolative behaviors and continue use of healthy coping skills. Narrative Note: []
--- NOTE | 2018-07-30 11:15 | BH.SGPN.GN ---
Behaviors/Verbalizations/Mental Status: []Client alert and oriented, neatly dressed and groomed. Eye contact good. Motor activity appropriate. Speech within normal limits, tangential at times. Affect congruent, mood euthymic. Thoughts linear, logical, no signs of hallucinations or delusions. Client Response/Progress/Benefit: []Client responded well to session, active participant in discussion. Client helped the group discuss and identify different social supports as well as the benefits of different supports. The group identified examples of personal, self-help, professional, spiritual, and co-worker social supports. Group identified benefits of receiving social support to be; new ideas, accountability, someone to listen, non-judgmental support, and connection. Client reported he wants to increase his personal social support network and he reports plans to move to [place] to be closer to his family. Client shared increasing this social support would make him feel safer and happier. Client shared his goal is to reach out to his family and tell them his plans. Client appeared to benefit from increasing understanding of different types of social support and identifying ways to improve his. Progress noted as client reports reduced isolation and depressive symptoms. Client to continue IOP to promote gains and cope with grief.
--- NOTE | 2018-07-31 09:10 | BH.SGPN.GN ---
Behaviors/Verbalizations/Mental Status: [] Eye contact is good. Motor activity is appropriate. Appearance is casual. Speech is Appropriate. Mood is depressed. Affect is full. Thoughts are linear and logical. No evidence of psychosis. Reviewed daily check in sheet and no reports of suicidal ideations or intent. Client Response/Progress/Benefit: [] Pt was an active participant in group discussion. Reports some somatic issues which have been impacting motivation, energy, and mental health. Did not follow through with goals from yesterday. Isolated at home. He discussed his hx of isolative behaviors and what led to recent 4 week isolative episode. He stated that he noticed yesterday that he was reverting back to old ways and thinking. Admits that isolating is easy and comfortable. Insight that severe isolation starts small and that he has to be vigilant. States I gotta go out today. Group provided feedback, support, and encouragement which he benefited from. Will continue in IOP to decrease isolative behaviors, increase support and socialization, prevent decompensation, and increase healthy coping skills. Narrative Note: []
--- NOTE | 2018-07-31 10:13 | BH.SGPN.GN ---
Behaviors/Verbalizations/Mental Status: []Client alert and oriented, neatly dressed and groomed. Eye contact good. Motor activity appropriate. Speech off topic at times. Affect congruent, mood euthymic. Thoughts linear, logical, no signs of hallucinations or delusions. Client Response/Progress/Benefit: []Client was an active participant in group discussion and activity. Group worked together to define coping skills and discussed the differences between healthy vs unhealthy coping skills as well as the importance of balance. Group identified unhealthy coping skills as; bottling up emotions, lashing out, blaming others, shutting down, isolating, drinking, and smoking. Reported the consequences of unhealthy coping skills as; issue/problem is not addressed or solved, hurt relationships, cause increased guilt and shame, and they maintain unhealthy cycles of living. Client engaged in the group activity and was able to connect the importance of having a strong base of coping skills. Benefited through increased education and awareness of the impact of healthy vs unhealthy coping skills on mental wellness as well as the importance of having a strong base of healthy internal and external healthy coping skills. Will continue in IOP to increase coping skills and decrease depressive symptoms.
--- NOTE | 2018-07-31 11:17 | BH.SGPN.GN ---
Behaviors/Verbalizations/Mental Status: [Client alert and oriented, casually dressed and groomed. Eye contact good. Motor activity appropriate. Speech within normal limits. Affect congruent, mood euthymic. Thoughts linear, logical, no signs of hallucinations or delusions.] Client Response/Progress/Benefit: [Client responded well to session, engaged throughout and providing ideas during group brainstorming. Client appeared to connect with the activity from second group and helped the group identify benefits of having a strong foundation of internal and external coping skills. Client shared that without healthy internal skills he ended up relapsing and falling back into unhealthy coping when faced with stressors in the past. Client helped the group discuss the different categories of coping skills and provided examples. Client reported it is important to have a variety of coping skills for different types of stressors. Client created a coping skills ?menu? for the five categories of coping skills. Client selected calling supports, taking breaks, cleaning, music, positive self-talk, and using opposite action. Client appeared to benefit from increasing repertoire of healthy coping skills. Progress noted in client?s improved mood and report of reduced intensity of symptoms. Client to continue IOP to promote gains and improve mood stability, as well as daily functioning.] Narrative Note: []
--- NOTE | 2018-08-01 09:05 | BH.SGPN.GN ---
Behaviors/Verbalizations/Mental Status: []Client alert and oriented, neatly dressed and groomed. Eye contact good. Motor activity appropriate. Speech tangential. Affect congruent, mood euthymic. Thoughts linear, logical, no signs of hallucinations or delusions. Reviewed client?s symptom tracker, no risk for suicidal ideation, plan, or intent as of 08/01/18. Client Response/Progress/Benefit: []Client responded well to session, providing supportive statements to peers, though he was off topic at times. Client reports feeling ?hopeful and energetic? today. Client struggles with allergies and he shared that he turned on his AC which is giving him allergy relief. Client stated, ?I feel a lot better, I woke up with energy.? Client identified additional mental health wins to be talking to his [id number], feeling supported by his insurance company, and feeling optimistic. Client shared his mental health stressor is trying to manage his house. Client stated in the past this would overwhelm him, but he feels less stressed in trying to manage the house which is positive. Client appeared to benefit from reflecting on his mental health wins and connecting with peers. Progress noted in client?s reduced isolation and depressive symptoms. Client to continue IOP to promote use of healthy coping skills, maintain sobriety, and prevent decompensation.
--- NOTE | 2018-08-01 10:15 | BH.SGPN.GN ---
Behaviors/Verbalizations/Mental Status: [Eye contact is good. Motor activity is appropriate. Appearance is casual. Speech is Appropriate, at times tangential. Mood is euthymic, inquisitive. Affect is congruent with mood. Thoughts are linear and logical. No evidence of psychosis.] Client Response/Progress/Benefit: [Pt actively engaged throughout, provided relevant input to the discussion on resiliency. Reflected with group on the quote, indicating that ?if we are not flexible we will snap? and described a personal example in which he had to learn to adopt a new open-mind. Additionally, did well to participate in the challenge activity and made connections between it and barriers/supports to development of a resilient lifestyle. He did well to work within the small group setting to discussed the factors in building Resilience and benefitted from developing strategies for developing and promoting a resilient lifestyle. Pt identified that if we ?avoid seeing crisis as insurmountable? we are more likely to find new ways to overcome and manage crisis. Pt continues to make progress in managing depressive symptoms and grief through active application of healthy coping skills. Recommended continued IOP tx to prevent decompensation and promote ongoing consistency of healthy skill application, and emotion regulation.] Narrative Note: []
--- NOTE | 2018-08-01 10:17 | BH.VS.HW ---
Vital Signs - Blood Pressure Blood Pressure: 102/80 - L arm, sitting
[2018-08-01 10:18] VITALS: BP 102/80
--- NOTE | 2018-08-01 11:20 | BH.SGPN.GN ---
Behaviors/Verbalizations/Mental Status: []Client alert and oriented, casually dressed. Eye contact good. Motor activity appropriate. Speech within normal limits. Affect congruent, mood euthymic. Thoughts linear, logical, no signs of hallucinations or delusions. Client Response/Progress/Benefit: []Client responded well to session, providing input during discussion and listening attentively to peers. Client engaged in the group activity as shown by client working cooperatively with others and providing ideas to group. At one point in activity client stated he didn't think the group could continue improving, despite his skepticism he chose to continue with activity. When processing activity client connected importance of not giving up and willingness to try new ideas as strategies that helped group be successful. Client reported he wants to work on taking care of self by going to the gym at least once this weekend and 2 times next week for at least 30 minutes to further improve personal resilience. Client appeared to benefit from identifying personal resilience factors. Client to continue IOP to increase social connections, decrease negative thinking and prevent decompensation. Narrative Note: []
--- NOTE | 2018-08-04 09:06 | BH.SGPN.GN ---
Behaviors/Verbalizations/Mental Status: [Eye contact is good. Motor activity appropriate. Appearance is casual. Speech is Appropriate. Mood is euthymic, positive. Affect is congruent. Thoughts are linear and logical. No evidence of psychosis. Reviewed daily check in sheet and no reports of suicidal ideations or intent.] Client Response/Progress/Benefit: [Pt was attentive in group discussion, providing input throughout thought at times struggling to remain on topic or interrupting others. He was able to respond well to redirection and allow others to continue sharing without problem. Pt emotion for today is successful as he did well to accomplish goals he had set for himself for the weekend. Reports current mental health wins include: following through with going to the gym and being realistic about his expectations for himself regarding athletic ability, additionally identified a win that his [id number] respected pt boundaries and did not ask for money to repair something. Reports this was positive as he felt his family was taking his feelings into consideration and respecting him. Pt showing progress in increased willingness to make small strides towards current mh goals. Appearing to benefit from the supportive group environment as well as reflecting upon areas of progress. Pt reports current stressor is continuing to struggle with deciding whether or not to sell his mother?s estate. Will continue in IOP to further promote consistent skill application, continue to improve symptom management and prevent decompensation.] Narrative Note: []
--- NOTE | 2018-08-04 10:15 | BH.SGPN.GN ---
Behaviors/Verbalizations/Mental Status: []Client alert and oriented, neatly dressed and groomed. Eye contact good. Motor activity appropriate. Speech tangential at times. Affect congruent, mood euthymic. Thoughts linear, logical, no signs of hallucinations or delusions. Client Response/Progress/Benefit: []Client was an active participant in group discussion and activity. Client reported if one does not address conflict, it just keeps building over time. Client identified several examples of conflict in his personal life. Worked together with the group to define and identify differences between internal and external conflict. Group identified and discussed the benefits of addressing internal/external conflict which includes; express emotions and thoughts, resolve problems, improve relationships, and improve mental health. Client worked with group to identify barriers to overcoming conflict which included; body language, unmanaged emotions, tone of voice, negative thoughts, being closed minded, and low self-worth. Attentive during psychoeducation on different conflict styles such as avoiding, accommodating, competing, and collaborative. Reviewed benefits and drawbacks to each style. Benefited as he was able to identify and define conflict as well as increase awareness of how conflict style impacts mental health. Progress noted as client has reduced isolation and reported going to the gym this weekend. Client will continue IOP to prevent decompensation and further decrease depression associated with grief.
--- NOTE | 2018-08-04 11:20 | BH.SGPN.GN ---
Behaviors/Verbalizations/Mental Status: []Pt eye contact good, casually dressed, motor activity appropriate, speech normal rate and tone, mood euthymic, congruent affect, thoughts linear and intact, no evidence of delusions or hallucinations. Client Response/Progress/Benefit: []Client responded well to session, engaged throughout session. Client further processed conflict resolution style, identifying he is most often is accommodating because tends to fix other's issues for them. With assistance client recognized he tends to take other other people's conflict situations by fixing their issues or problems. Client reported his mental health has been negatively impacted by being accommodating because he doesn't help himself instead focuses on others needs. Client was encouraged to practice being collaborative during the activity. Initially client was competing AEB client being unwilling to hear other's opinions. When processing activity client recognized he was being too dominating at the beginning by not listening to what others wanted, instead only focusing on his own opinion. Client agreed with group that talking through opinions and focusing on one thing at a time helped effectively resolve conflict. Client helped the group identify strategies to better manage conflict which included: focusing on one issue at a time, listening to the other person, not making assumptions, managing emotions appropriately, and being assertive. Client appeared to benefit from learning conflict resolution strategies and increasing self-awareness. Progress noted as client is getting out of his house and recently followed through with goal of going to the gym. Client to continue IOP to prevent decompensation, increase healthy supports, and utilize healthy coping skills. Narrative Note: []
--- NOTE | 2018-08-06 10:10 | BH.SGPN.GN ---
Behaviors/Verbalizations/Mental Status: []Client alert and oriented, neatly dressed and groomed. Eye contact good. Motor activity appropriate. Speech within normal limits- but off topic at times. Affect congruent, mood euthymic. Thoughts linear, logical, no signs of hallucinations or delusions. Client Response/Progress/Benefit: []Client was attentive throughout session and proving to discussion. Client connected with the quote and shared ?growth is a chain reaction.? Client, along with other group members, provided input and suggestions when identifying what positive and negative internal/external forces are and the impact that these forces have on their mental health. Client shared it is important to focus on controlling internal forces as these are in their control. Examples of negative forces included; isolation, negative self-talk, and unhealthy coping skills. Client identified getting help, taking care of basic needs, and positive self-talk as positive forces. Client engaged in the activity and reported he was able to cope with irritation in a healthy way. Benefited from increased awareness of how different positive and negative forces impact mental health. Progress noted in client?s improved mood, reduced isolation, and maintained sobriety. Client to continue IOP to further increase healthy coping skills and promote gains.
--- NOTE | 2018-08-06 14:45 | BH.MDN ---
Multi-Disciplinary Note - Note 45-min Individual Time Started:: 09:15 Date: 08/06/18 Purpose of session/treatment goals addressed:: The purpose of this session was to address current symptoms, emotions, and application of healthy coping skills. Another goal was to identify positive supports and relapse prevention strategies. Other topics included psychiatry and goals. Eye Contact:: Good Motor Activity:: Appropriate Appearance:: Neat Speech:: Rambling Mood:: Euthymic Affect:: Congruent Thoughts:: Linear, Logical, No evidence of hallucinations/delusions noted Staff Interventions:: Therapist used active listening and open-ended questions to explore client's current stressors, symptoms, and emotions. Therapist helped client identify positive supports and coping skills to promote maintenance. Therapist provided psychoeducation on depressive maintenance cycles and relapse prevention. Therapist explored the pros and cons of client moving to [place] and discharging early from [facility]. Therapist helped client process his ongoing loneliness and triggers for depression. Therapist encouraged ongoing application of coping skills and daily goal setting. Client Response:: Client responded well to session, open to meeting with therapist. Client stated he had an appointment with his outpatient psychiatrist today and the psychiatrist cut down on client's dosage of Klonopin. Client shared he is starting to feel like his old self again. Client shared belief he was doing very well and that he has been thinking about moving to [place] for a few months to be around friends and the yan. Client acknowledged progress in ongoing sobriety, reduced isolation, reduced depression, and improved mood. Client shared he has been crying less and has been able to complete more ADLs. Client receptive to using a cost/benefit analysis activity to weigh the pros and cons of leaving [facility] early to move to [place]. After further processing, client recognized that he could benefit from staying longer in [facility] to promote gains, maintain sobriety, further decrease depression, and establish aftercare. Client also recognized that there will be more temptations to drink if he moves back to [place] right now. Client stated moving forward he wants to work on managing his loneliness as it is was a trigger for depression and use of unhealthy coping skills. Client also reported he wants to work on finding pleasurable activities and maybe finding a job. Client was willing to follow up with the list of outpatient providers given by therapist. Risks/Concerns:: Client denies any suicidal ideations, plan, or intent as of 08/06/18. Progress Toward Goals/Plan:: Client continues to make progress towards his treatment goals as shown by client?s report of reduced isolation, increased hope, and ongoing report of sobriety. Client reports being more social and motivated since starting IOP. Client shared he has been using more positive self-talk ?which I haven?t been positive with myself in a long time. Client shared belief he is progressing well and asked about discharge. After further exploration, client acknowledged he can benefit from continued IOP to promote gains and increase coping skills to maintain sobriety and manage depression. Client continues to meet criteria for IOP level of care as he endorses crying spells, grief, guilt, loneliness, and anxiety. Time Stopped:: 10:07
--- NOTE | 2018-08-07 09:05 | BH.SGPN.GN ---
Behaviors/Verbalizations/Mental Status: [Eye contact is good. Motor activity is appropriate. Appearance is casual, grooming appropriate. Speech is Appropriate rate and tone. Mood is euthymic. Affect is congruent. Thoughts are linear and logical. No evidence of psychosis. Reviewed daily check in sheet and pt denies any active SI, plan, or intent.] Client Response/Progress/Benefit: [Pt responded well to session, engaged throughout and open to processing with the group. Pt indicated current emotion as ?happy/confident? and discussed that this is due to feeling he is continuing to make strides in improving his mental health through application of materials learned in tx. Pt identified mental health wins, indicating that challenging himself to practice radical acceptance has aided in accepting and learning to move towards embracing the fact that he now lives in [place]. Pt did well to recognize additional win which included practicing a ?nickerson mind? approach to daily stressors. Shared current stressor is continuing to work on accepting living in [place]. Appeared to benefit from supportive feedback provided by group. Pt progress in self-report of increasing use of self-care and positive self-talk. Pt recommended continued IOP tx to prevent decompensation, and promote ongoing application of healthy coping skills, and reduce depression.] Narrative Note: []
--- NOTE | 2018-08-07 10:10 | BH.SGPN.GN ---
Behaviors/Verbalizations/Mental Status: [] Eye contact is good. Motor activity is appropriate. Appearance is casual. Speech is Appropriate. Mood is depressed. Affect is flat. Thoughts are linear and logical. No evidence of psychosis. Client Response/Progress/Benefit: [] Pt was an active participant in group discussions. Attentive. Provided insight during processing of quote of the day. The group and pt worked together to identify barriers that keep one from choosing a new and more healthy path to mental wellness which included; temptation ( substance abuse, unhealthy coping skills, toxic relationships), easier and more comfortable to stay on current path, change is difficult, unsure how to make changes or choose different paths, isolation, negative self-talk, emotions, and fear of the unknown. Attentive during psycho-education on the chapters of life. Pt was engaged in group and noted that he received a text during group which caused increased anxiety and depression. Reports that group topic helped him identify that going down same path to manage these emotions was not going to be helpful. Reported at end of group that he worked through it. Benefited from increased awareness and education on barriers to choosing new wellness paths and chapters of life. Narrative Note: []
--- NOTE | 2018-08-07 11:10 | BH.SGPN.GN ---
Behaviors/Verbalizations/Mental Status: []Client alert and oriented, neatly dressed and groomed. Eye contact good. Motor activity appropriate. Speech circumstantial. Affect congruent to topics discussed-tearful at times, mood hopeful. Thoughts linear, logical, no signs of hallucinations or delusions. Client Response/Progress/Benefit: []Client was an active participant in group discussion, but he was off topic at times. Verbally completed worksheet and willing to share with the group. Client reported belief he is in ?chapter 4? as client shared he has learned a lot of coping skills, reports belief he is handling stressors better, and is feeling more hopeful. Client shared to get to the next chapter he wants be more consistent with self-care and setting boundaries. Client identified things he is currently doing that will help him get to the next chapter including; being social, using positive self-talk, and avoiding drinking triggers. Stated he recognizes that his procrastination tendencies may be a barrier to growth at times. Client identified his goal to get to the next chapter as creating plan for himself on days he is not at IOP. Benefited from group by identifying thoughts and behaviors that have kept him stuck and developing plan to promote progress. Will continue in IOP to maintain sobriety, promote gains, and increase mood stability.
--- NOTE | 2018-08-08 09:00 | BH.SGPN.GN ---
Behaviors/Verbalizations/Mental Status: []Client alert and oriented, neatly dressed and groomed. Eye contact good. Motor activity appropriate. Speech tangential, repetitive. Affect congruent, mood euthymic. Thoughts linear, logical, no signs of hallucinations or delusions. Reviewed client?s symptom tracker, no risk for suicidal ideation, plan, or intent as of 08/08/18. Client Response/Progress/Benefit: []Client responded well to session, tangential at times, but providing emotional support to peers. Client reports feeling ?positive? today. Client?s mental health positive today is that he was able to address a conflict with his brother rather than isolating and internalizing. Client shared he received an upsetting text during IOP group yesterday and ?I shut down for about 4 minutes, but then I worked it out and felt better.? Client stated he was proud of himself for using coping skills to manage his sadness and disappointment in the moment rather than leaving group and isolating. Client?s other mental win is that he set a boundary with family that supports client?s sobriety. Client appeared to benefit from reflecting on gains and connecting with peers. Progress noted in maintained sobriety and reduced depression. Client to continue IOP to further promote mood stability, reinforce healthy coping skills to maintain sobriety, and improve functioning.
--- NOTE | 2018-08-08 10:10 | BH.SGPN.GN ---
Behaviors/Verbalizations/Mental Status: [] Eye contact is good. Motor activity is appropriate. Appearance is causal. Speech is Appropriate. Mood is euthymic. Affect is full. Thoughts are linear and logical. No evidence of psychosis. Client Response/Progress/Benefit: [] Pt participated in group activity and discussions. Provided insight on today's quote. Group worked together to identify benefits to developing goals which included; helps one grow, improves mental health through purpose, gives one something to look forward too or strive for, motivates, keeps one focused, can give a sense of accomplishment, and provides hope for the future. Group also identified barriers to setting and accomplishing goals which included; fear fo failure, past negative experiences, negative people in our lives, negative thoughts, our emotions (depression, stress, anger, anxiety), trouble getting out of our comfort zone, and our perception or outlooks. Attentive during education on developing SMART goals. Benefited from increase awareness of goal-setting methods. Will continue in IOP to prevent decompensation, improve daily functioning, increase social activities, and to improve healthy coping skills. Narrative Note: []
--- NOTE | 2018-08-08 11:15 | BH.SGPN.GN ---
Behaviors/Verbalizations/Mental Status: [Pt eye contact good, casually dressed, motor activity appropriate, speech normal rate and tone, at times tangential, mood euthymic, congruent affect, thoughts linear and logical, no evidence of delusions or hallucinations. ] Client Response/Progress/Benefit: [Pt attentive and contributed to discussion, at times distracted becoming off topic ? however able to be redirected when prompted. Did well to work with group to reflect on challenge activity and make connections between barriers faced and supports used with own life. Engaged in creating own mental health SMART goal and identified goal as: ?Go to the gym 2-3x each week for 2 weeks in a row?. Client stated this goal will benefit him by increasing self-confidence and decreasing feelings of guilt about not going. Pt identified it being easier to stay at home, excuses, and not having anyone to go with as potential barriers to achieving identified goal. Pt seemed to benefit from identifying a SMART goal and developing ways to overcome potential barriers. Pt reports supports for achieving goal as: scheduling a set time to go each week, getting a workout santana, and finding a associate trainer to help hold hm accountable. Progress noted in pt ability to identify potential barriers without minimizing impact they may have in reaching goal. Pt to continue IOP level care to promote continued healthy change behaviors, continue to promote application of healthy coping and communication with supports, and prevent decompensation. ] Narrative Note: []
== END 2018-08-10 23:59 ==
LOC: BHIOP 09:00
PROVIDERS: Family Provider Family Medicine; PCP Family Medicine; Referring Provider Psychiatry & Neurology Psychiatry; Visit Provider Psychiatry & Neurology Psychiatry
DX: F33.41 Major depressive disorder, recurrent, in partial remission (principal); Z63.4 Disappearance and death of family member; F43.22 Adjustment disorder with anxiety; Z72.89 Other problems related to lifestyle; Z79.899 Other long term (current) drug therapy; E78.5 Hyperlipidemia, unspecified; I10 Essential (primary) hypertension; R45.851 Suicidal ideations
CPT/HCPCS: 99204; H0035; H2012; H2020; T1002; 90834; 90837

== ENCOUNTER 2018-08-18 09:00 | Outpatient (RCR) | payer MEDICAID, SELFPAY ==
[2018-07-08 23:32] VITALS: BMI 27.9
[2018-08-11 01:05] VITALS: BP 102/80; PULSE 76; RESP 14
--- NOTE | 2018-08-13 09:18 | BH.COMM ---
Communication Note - Communication with Client Communication Note: Client cancelled his scheduled IOP group and individual sessions today due to illness. Client has cancelled three days in a row and therapist voiced concern for isolation and relapse. Client denied drinking and shared I'm not drinking and I am starting to feel better. Client stated he plans to attend group and see therapist on Saturday08/15/18.
--- NOTE | 2018-08-18 10:12 | BH.SGPN.GN ---
Behaviors/Verbalizations/Mental Status: [Pt alert and oriented, eye contact good, neat and casually dressed, motor activity appropriate, speech normal rate and tone, mood euthymic, congruent affect, thoughts linear and intact, no evidence of delusions or hallucinations.] Client Response/Progress/Benefit: [Client engaged participant as shown by client?s contribution to discussion, insight provided, and feedback provided to the group. Client participated in the discussion of the common myths about self-care including self-care is selfish, just involves hygiene, makes us weak, and always fun. Client worked with group to debunk the myths about self-care. Client stated he has historically struggled with putting his self-care needs last and instead focused on putting other priorities first. Expressed that this is what led to his IOP admission and continued to impact ability to really work through his own depression and grief in the past. Client seemed to benefit from increased awareness of the importance of self-care. Client showing progress as shown by increase in consistent use of healthy skills, reduced anxiety, and improved outlook on life. Will continue tx to identify and challenge distorted thoughts, increase healthy coping skills, and prevent decompensation.] Narrative Note: []
--- NOTE | 2018-08-18 11:15 | BH.SGPN.GN ---
Behaviors/Verbalizations/Mental Status: []Eye contact is good. Motor activity is appropriate. Appearance is casual. Speech is Appropriate. Mood is euthymic. Affect is congruent. Thoughts are linear and logical. No evidence of psychosis. Client Response/Progress/Benefit: []Client was engaged in session, attentive and providing to discussion. Group identified various types of self-care which included spiritual, physical, emotional, social, financial, psychological, and professional. Client did well to reflect upon what he is currently doing in each self-care category and identify areas he can improve to promote balance. Client identified practices he is currently using in the different areas which included: using positive self-talk, going to the gym, eating regularly, seeking financial guidance, reaching out to supports, and practicing lutheran. Benefited from assessing current self-care balance and developing strategies to increase self-care in areas he feels are lacking. Client reported he would like to improve his professional and social areas of self-care. Client recognizes that he can improve his support network and reports belief that finding a job could help with this. Client?s goal is to look into job assistance resources. Recommended further tx to promote gains, maintain sobriety, and further reduce depressive symptoms.
--- NOTE | 2018-08-19 09:08 | BH.SGPN.GN ---
Behaviors/Verbalizations/Mental Status: []Client alert and oriented, neatly dressed and groomed. Eye contact good. Motor activity appropriate. Speech within normal limits. Affect congruent, mood euthymic. Thoughts linear, logical, no signs of hallucinations or delusions. Reviewed client?s symptom tracker, no risk for suicidal ideation, plan, or intent as of 08/19/18. Client Response/Progress/Benefit: []Client responded well to session, providing supportive statements. Client reports feeling ?positive and hopeful? today. Client shared he did not feel well yesterday, but he was able to motivate himself to get out of the house. Client stated he went to [employer] and got some chores done as well. Client?s second positive was he feels well rested today and he feels more active today. Client?s current stressor is he is trying to find more connections in [place] and he is contemplating staying in [place] rather than moving. Client able to identify coping skills to help him manage his stress which includes self-talk and setting small goals. Progress noted in maintained sobriety and reduced depression. Will continue IOP tx to promote gains, prevent relapse, and encourage the use of healthy coping skills.
--- NOTE | 2018-08-19 11:10 | BH.SGPN.GN ---
Behaviors/Verbalizations/Mental Status: [Client alert and oriented, neatly dressed and groomed. Eye contact good. Motor activity appropriate. Speech within normal limits. Affect congruent, mood euthymic. Thoughts linear, logical, no signs of hallucinations or delusions. ] Client Response/Progress/Benefit: [Client responded well to session, attentive and engaged during small group session. Group discussed the mental health benefits of recognizing strengths which included; improved self-esteem, better relationships, and increased resilience. Group identified the barriers that have prevented them from acknowledging their strengths and successes. These barriers included; negative thoughts, feeling like a burden, negative outlook, lack of awareness of strengths. Group identified strategies to overcome barriers that prevent them from seeing strengths. These strategies included; keeping track of progress, practicing using affirmations, and challenging distortions. Client able to identify personal strengths he possesses which included; empathy, honesty, organization, sense of humor, and resilience. Appeared to benefit from recognizing personal strengths and identifying strategies to overcome barriers. Will continue IOP tx to decrease rumination and further increase healthy coping skills. ] Narrative Note: []
--- NOTE | 2018-08-19 13:03 | BH.TPR ---
Treatment Plan Review Date of Admission:: 07/22/18 Date of Treatment Plan Review:: 08/19/18 Admitting Diagnoses:: Major depression, recurrent F33.2; bereavement; adjustment disorder with anxiety; alcohol use disorder Current Diagnoses:: Major depression, recurrent F33.2; bereavement; adjustment disorder with anxiety; alcohol use disorder Patient's Response to Treatment:: Client has responded well to IOP so far as shown by his progress towards treatment goals. Client has been an active group member so far as shown by his feedback and connections with topics during sessions. Client has good attendance and is receptive during individual and group sessions. Client has been willing to set goals, create new supports, and implement healthy coping skills daily. Client and therapist created a relapse prevention plan which will help remind client of triggers, coping skills, and supports. Client is also working on increasing his social supports by finding a new buddhism and establishing a weekly routine. At admission, client had been crying daily, isolating, experiencing panic attacks, and feeling lonely. At review, client reports reduced crying, decreased isolation, and improved ability to cope with his symptoms. Client was sick last week which could have triggered loneliness and depression. Client shared even though he felt some depressed, he was able to use healthy coping skills to prevent setbacks. Client?s DSM-5 scores went from 37 at admission to 6 at review. Client?s scores for depression went from 6/8 at admission, to 3/8 at review. Additionally, client?s DSM-5 scores for anxiety reduced from 9/12 to 0/12 at review. Status of Current Problems and Symptoms: Client was sick last week which triggered some regression in depressive symptoms. Client shared he found himself crying more, feeling lonely, and feeling depressed. Client reported being able to utilize coping skills to prevent a total spiral. Client continues to work on building his support system and establishing a routine. Client reports some ongoing challenges with loneliness, boundaries setting, and grief. Lastly, client continues to work on maintaining sobriety. Problem #1 Problem Name:: Pt. will reduce depressive symptoms, hopelessness, and isolation. Status of Goals:: Objective 1- partially complete. Client has not yet participated consistently in one additional activity per week, but he has been reducing his isolative behaviors. Client plans to attend a new buddhism before discharging IOP and he is receptive to going to [employer]. Client has also been reaching out to family more often and has been working on healthy boundaries. Objective 2- complete, but ongoing work recommended to promote gains. Client can identify and reports using opposite action, small goal setting, and positive self-talk to manage depression, Client has continued to be sober and has been working to remove himself from triggers. Client?s DSM-5 symptoms have decreased by 50% for depression since starting IOP. Team Recommendations:: Client encouraged to continue working on this treatment goal to reinforce healthy coping skills and continue to decrease depressive symptoms. Client and therapist currently working on maintenance strategies to prevent relapse, boundary setting, and establishing routine. Client encouraged to follow up with setting up aftercare and reports plan to attend a new buddhism. Problem #2 Problem Name:: Pt. will reduce overall frequency, intensity, and duration of the anxiety. Status of Goals:: Objective 1- complete, but ongoing work recommended. Client can identify triggers and reports using calming coping skills to manage his anxiety. Client has been reaching out to supports, deep breathing, and taking time to reflect before responded to stressful situations. Objective 2- complete, but ongoing work encouraged to promote stability while weaning off Klonopin. Client?s DSM-5 scores for anxiety have decreased from 9/12 at admission to 0/12 at review. Team Recommendations:: Client encouraged to continue working on this treatment goal to reinforce healthy coping skills and continue to promote gains made in reducing anxiety symptoms. Client and therapist currently working on reinforcing calming coping skills, small goals, and thought challenging. Client and his outpatient psychiatric nurse practitioner currently working on weaning client off Klonopin.
--- NOTE | 2018-08-19 14:25 | BH.MDN_ITS ---
Multi-Disciplinary Note - Note 45-min Individual Time Started:: 07:50 Date: 08/19/18 Purpose of session/treatment goals addressed:: The purpose of this session was to address current symptoms, emotions, and application of healthy coping skills. Another goal was to identify positive supports and complete a relapse prevent plan. Eye Contact:: Good Motor Activity:: Appropriate Appearance:: Neat Speech:: Tangential, Rambling Mood:: Euthymic Affect:: Congruent Thoughts:: Circular, No evidence of hallucinations/delusions noted Staff Interventions:: Therapist used active listening and open-ended questions to explore client's current stressors, symptoms, and emotions. Therapist helped client identify positive supports and coping skills to promote maintenance. Therapist provided psychoeducation on relapse and assisted client in filling out a relapse prevention worksheet. Therapist helped client explore his warning signs and triggers for relapse as well as healthy coping skills to utilize. Therapist encouraged ongoing application of coping skills and daily goal setting. Therapist gave client resources for aftercare and client is to follow up with [facility] and grief counseling. Client Response:: Client responded well to session, open to meeting with therapist. Client shared he missed being at IOP last week, but he knew he had to take care of himself. Client proudly reported even though he was sick he made himself shower, get dressed, and go outside at least once a day. Client stated this helped prevent a depressive episode and relapse. Client willing to complete a relapse prevention plan which helped client identify warning signs and triggers. Client identified his biggest triggers are positive moments, big changes, loss, and staying home. Client shared his warning signs include crying more often, binge watching TV, and not leaving his house. Client identified healthy coping skills and supports that can help client manage drinking urges and depression. Client's supports included two close friends, his brothers, and his [id number]. Client shared practicing positive self-talk, keeping liquor out of his house, and setting small goals will help client manage depression and prevent drinking. Client stated he is willing to follow through with grief counseling and ongoing individual counseling. Client was also interested in going to [employer] in recovery program. Client stated he wants to find a new sabianist to attend and was receptive to resources provided by therapist of churches in [place]. Client reported his mood become more depressed last week due to social isolation, so he recognizes the benefits of staying in IOP and establishing aftercare. Risks/Concerns:: Client denies any suicidal ideations, plan, or intent as of 08/19/18 Progress Toward Goals/Plan:: Client continues to make progress towards his treatment goals as shown by client?s ability to maintain sobriety, engage in self-care, and regulate emotions despite being sick all last week and missing IOP. Client continues to do well with getting out of the house, challenging negative thoughts, and focusing on one goal at a time. Client shared when he was sick his mood decreased, and he found himself crying more, but client stated, ?I didn?t spiral.? Client will continue IOP as he can benefit from ongoing reinforcement of healthy coping skills and supports to prevent relapse, improve emotional regulation, and increase daily functioning. Time Stopped:: 08:35
--- NOTE | 2018-08-20 08:58 | PCM.BH.PN ---
Progress Note Progress Note: Chief Complaint: This Dr. Ngozi Rosado dictating a progress note on Logan Roldan. Patient is seen in follow-up at the [facility]. He was admitted on July 22, 2018 and is seen in routine follow-up today. History of Present Illness/Interim History: Patient will continue the current medications at the present dose. He is trying to wean his Klonopin a little and is trying to go down to half to 1 at bedtime with the goal of eliminating Klonopin from his medication regimen. He will continue in the [facility] as he needs the stable the structure and support to maintain safety to avoid exacerbation and necessity for admission to the hospital. He will continue to stay sober from alcohol and understands the need for this. The risks options possible complications of his current medications were discussed with the patient and he understands and accepts these. He will continue treatment in the intensive outpatient program and will let us know if he is unable to maintain safety. Patient is a 57-year-old single male who states that he is improving during his time at the [facility]. He says that this program has helped him tremendously. He describes himself as doing pretty well mood [place]. He had a bad cold last week and his mood worsened a little. He says that since his physical health has improved this week he is doing somewhat better mood nick[place] also. He denies any thoughts of suicide or homicide. He has no thoughts of . He is feeling more optimistic about his future. He does admit that he has poor support locally primary support. He does have friends he can call but he is still somewhat lonely. He is going to try going to a new sikh this week to get a little more social options in this area. His sleep is is fine and his anxiety is manageable. He is staying completely sober from any alcohol use since June 2018. Current Psychiatric Medications: Psych medical Topamax 2 per night, lamotrigine 100 mg p.o. nightly, Wellbutrin XL 300 mg every morning, trazodone 100 mg nightly, Klonopin 1 mg as needed. Review of Symptoms: General review of systems is better now, he had some upper respiratory congestion and allergy symptoms last week but these have improved now. All other systems are reviewed and are negative at this time. Mental Status Examination: Patient is a 57-year-old man who appears normal for stated age. He is a cooperative during the interview and is a pleasant personable male. He maintains good eye contact throughout the interview. His speech is fluent and spontaneous with no pressure. His thought process is goal-directed but he tends to be a little overinclusive and somewhat circumstantial at times. His mood is depressed but improving. His affect is full and pleasant. Although he does tear up when talking about his loneliness. His thought content no evidence of suicidal ideation or homicidal ideation no evidence of. No evidence of hallucinations or delusions. Judgment intact concentration adequate. Impulsivity low. Insight good. Diagnoses: Major depressive disorder recurrent in partial remission; alcohol use disorder in partial remission remission. [place] I: [] [place] II: [] [place] III: [] Plan: [Patient will continue his medications at the current doses. He is continuing to try to wean off of the Klonopin starting by taking a half of 1 as needed. He will continue treatment in the intensive outpatient program and will necessitate treatment to avoid exacerbation and need for hospitalization. He is benefiting greatly from the structure and support of the IOP program. The risks options possible complications of his medication were discussed with the patient and he understands and accepts these.]
--- NOTE | 2018-08-20 09:02 | BH.SGPN.GN ---
Behaviors/Verbalizations/Mental Status: [Client alert and oriented, casually dressed and appropriately groomed. Eye contact good. Motor activity appropriate. Speech within normal limits, at times rambling. Affect congruent to topic being discussed, mood euthymic. Thoughts linear and logical, no signs of hallucinations or delusions. Reviewed daily check in sheet, pt denies any current SI, plan, or intent.] Client Response/Progress/Benefit: [Pt engaged in group discussion, listening and providing input to discussion. Emotion for today is satisfied. Pt indicated that current emotion is due to feeling more comfortable with himself and his ability to cope with current mental health stressors. Able to identify current mental health wins. Expressed win as decreased anxiety as a result of dealing with small stressors rather than avoiding. Additional win is reviewing self-care materials provided in group and taking steps to engage in improved self-care via getting a haircut. Indicates that current stressors is dealing insurance issues related to his medications but indicates taking a deep breath and a step back and was able to ?problem-solve it?. Pt receptive of and appearing to benefit from feedback and support provided by fellow participants. Progress indicated by pt self-report of more consistent skill application and reduction of anxiety. Pt recommended continued IOP tx to promote continued use of coping skills, maintain stability, and prevent decompensation. ] Narrative Note: []
--- NOTE | 2018-08-20 11:15 | BH.SGPN.GN ---
Behaviors/Verbalizations/Mental Status: []Client alert and oriented, neatly dressed and groomed. Eye contact good. Motor activity appropriate. Speech within normal limits, but off topic at times. Affect congruent, mood euthymic. Thoughts linear, logical, no signs of hallucinations or delusions. Client Response/Progress/Benefit: []Client was an active participant in group discussion. Attentive during psychoeducation on 4 zones of regulation. Client able to identify how he feels in each zone as well as how he acts in each zone. Client also able to identify coping skills he can use to support herself in each zone which included: setting small goals, taking breaks, exercising, self-care, reaching out to supports, and using positive self-talk. Client shared he is in the ?green? or the alert zone today as client feels alert and calm. Client reported he was in the ?yellow zone? earlier and he was able to use calming coping skills to manage his stress. Client recognized he could benefit from creating a plan to clean his house today and looking up a lutheran to attend. Benefited from group from increased education on zones of regulation or stages of alertness for emotions and healthy coping skills to use for each zone. Recommended continued IOP tx to promote mood stability, maintain sobriety, and further reinforce application of healthy coping skills.
--- NOTE | 2018-08-21 09:00 | BH.SGPN.GN ---
Behaviors/Verbalizations/Mental Status: []Client alert and oriented, neatly dressed and groomed. Eye contact good. Motor activity appropriate. Speech within normal limits. Affect congruent, mood euthymic and anxious. Thoughts linear, logical, no signs of hallucinations or delusions. Reviewed client?s symptom tracker, no risk for suicidal ideation, plan, or intent as of 08/21/18. Client Response/Progress/Benefit: []Client responded well to session, attentive and engaged throughout session. Client reports feeling ?stressed but positive? today. Client shared he experienced numerous stressors since last session, ?but a lot of my stressors turned into wins.? Client stated he was stressed about his air conditioner breaking, but he was able to solve the problem and get it fixed. Client shared he was stressed about other things at home too, and that he was able to use self-talk to reduce his anxiety. Client reported he told himself ?everything is going to get figured out? and this helped him feel more confident. Appeared to benefit from reflecting on his use of coping skills to manage stress. Progress noted in client?s ongoing sobriety and application of coping skills.?
--- NOTE | 2018-08-21 10:04 | BH.SGPN.GN ---
Behaviors/Verbalizations/Mental Status: [Client alert and oriented, neat and casually dressed and appropriately groomed. Eye contact good. Motor activity appropriate. Speech within normal limits. Affect congruent, mood euthymic, anxious. Thoughts linear, logical, no signs of hallucinations or delusions. ] Client Response/Progress/Benefit: [Client was an active participant in group activity and provided input to discussion throughout. He connected with the topic of obstacles and solutions and worked with group to identify common internal and external barriers that could prevent progress towards desired reality. Client discussed with the group impact of using avoidance rather than addressing internal can continue to further escalate mental health sx and prevent ability to cope longterm. Able to identify his own internal barriers preventing pt from reaching desired reality which included: procrastination, isolating at home, lack of follow-through, and not engaging in self-care activities. Benefited from group as client was able to identify impact of internal barriers on current mental health state and ability to make progress. Will continue IOP to prevent decompensation and improve application of skills learned, as well as improve mood stability.] Narrative Note: []
--- NOTE | 2018-08-25 09:03 | BH.SGPN.GN ---
Behaviors/Verbalizations/Mental Status: []Client alert and oriented, neatly dressed and groomed. Eye contact good. Motor activity appropriate. Speech within normal limits. Affect congruent, mood euthymic. Thoughts linear, logical, no signs of hallucinations or delusions. Reviewed client?s symptom tracker, no risk for suicidal ideation, plan, or intent as of 08/25/18. Client Response/Progress/Benefit: []Client responded well to session, providing supportive statements to peers. Client reports feeling ?really upbeat? today. Client reported several mental health wins which included attending a new evangelical, being productive over the weekend, and getting a new AC unit at his house. Client shared his brother is coming on Saturday, which is a stressor and positive for client. Client reported he must prepare for his brother to come, but ?I?m not going to over work myself.? Client has reported in past sessions that having people over can be a trigger because when they leave client feels increased loneliness. Client continues to work on building his internal and external supports to help combat loneliness and prevent relapse. Progress noted in client?s increased socialization and improved mood. Will continue tx as client can benefit from reinforcing healthy coping skills to prevent relapse, promote gains, and improve daily functioning.
--- NOTE | 2018-08-25 11:20 | BH.SGPN.GN ---
Behaviors/Verbalizations/Mental Status: [Client alert and oriented, casually dressed and groomed. Eye contact good. Motor activity appropriate. Speech within normal limits. Affect congruent, mood euthymic. Thoughts linear, logical, no signs of hallucinations or delusions. ] Client Response/Progress/Benefit: [Client responded well to session, contributing to discussion, and providing feedback throughout. Engaged in ongoing psychoeducation on the different communication styles. Client shared personal example of how communication can lead to misunderstanding and unnecessary stress. Able to gain insight into his communication style and identified falling into each of the communication styles at different times, provided example of being passive at times in personal relationships. Client reported these communication styles have negatively impacted his mental health and relationships in the past. Participated in group activity and able to use the activity to reflect on ways to improve communication. Attentive during psychoeducation on effective communications strategies and reported he wants to work on using more concrete terms to communicate his needs to others. Appeared to benefit from increasing self-awareness and practicing in the moment coping skills. Pt to continue tx to prevent decompensation and improve mood stability.] Narrative Note: []
--- NOTE | 2018-08-26 09:00 | BH.SGPN.GN ---
Behaviors/Verbalizations/Mental Status: [] Eye contact is good. Motor activity is appropriate. Appearance is neat. Speech is Appropriate. Mood is anxious. Affect is congruent. Thoughts are linear and logical. No evidence of psychosis. Reviewed daily check in sheet and no reports of suicidal ideations or intent. Client Response/Progress/Benefit: [] Pt was an active participant in group discussion. Emotion for today is anxious. Pt reports that his brother and [id number] are going to be staying with him for a few days. They are aware of mental health struggles and recent hospitalization for alcohol issues and pt reports they are supportive. He talked at length regarding his relationship with them and some previous poor interactions. Also fearful that he will have others around for several days and then get extremely lonely when they leave. Understands that feelings of loneliness are a trigger for him and that it would be beneficial to prepare and be aware. Progress noted per pt report. Benefited from group support, encouragement, and feedback. Will continue in IOP to maintain gains, prevent decompensation, increase socialization, and to increase healthy coping skills. Narrative Note: []
--- NOTE | 2018-08-26 11:17 | BH.SGPN.GN ---
Behaviors/Verbalizations/Mental Status: []Client alert and oriented, neatly dressed and groomed. Eye contact good. Motor activity appropriate. Speech within normal limits, but off topic at times. Affect congruent, mood euthymic. Thoughts linear, logical, no signs of hallucinations or delusions. Client Response/Progress/Benefit: []Client responded well to session, active participant. Client appeared to connect with the activity from second group and helped the group identify benefits of having a strong foundation of internal and external coping skills. Client helped the group discuss the different categories of coping skills and provided examples. Client reported he has learned more internal coping skills since starting IOP, but he wants to continue to improve symptom management. Client created a coping skills ?menu? for the five categories of coping skills. Client selected housework, meditation, mindful eating, not judging himself so harshly, and asking himself ?would I say this to a loved one? as the coping skills he wants to try. Client appeared to benefit from increasing his repertoire of healthy coping skills. Client showing progress as shown by his reduced isolation and maintained sobriety. Will continue tx to promote gains and reinforce healthy coping skills.
--- NOTE | 2018-08-27 09:01 | BH.SGPN.GN ---
Behaviors/Verbalizations/Mental Status: [Eye contact is good. Motor activity is appropriate. Appearance is casual, grooming appropriate. Speech is Appropriate rate and tone. Mood is anxious. Affect is congruent. Thoughts are linear and logical. No evidence of psychosis. Reviewed daily check in sheet and pt denies any active SI, plan, or intent. ] Client Response/Progress/Benefit: [Pt responded well to session, engaged throughout and open to processing with the group. Pt indicated current emotion as ?anxious? and discussed that this is due to trying to prepare for the upcoming visit of his brother. Pt indicated this as his current stressors and explained that his brother has a cancer diagnosis and so pt is anxious about having everything sterile for his visit. Pt identified mental health win as breaking thing down and cleaning small portions at a time to prevent from overwhelming himself and burning out. Additional win identified as recognizing when he was beginning to isolate on previous date and practicing opposite action by leaving the house and doing other things to prevent from ?falling into the cycle?. Pt progress in self-report of increasing use of self-care and setting personal boundaries to prevent overwhelming himself. Pt recommended continued IOP tx to prevent decompensation, and promote ongoing application of healthy coping skills, and improve mood stability.] Narrative Note: []
--- NOTE | 2018-08-27 10:17 | BH.SGPN.GN ---
Behaviors/Verbalizations/Mental Status: []Client alert and oriented, neatly dressed and groomed. Eye contact good. Motor activity appropriate. Speech within normal limits, but off topic at times. Affect congruent, mood euthymic. Thoughts linear, logical, no signs of hallucinations or delusions. Client Response/Progress/Benefit: []Client participated in group discussion and worksheet activity. Worked together with the group to define a crisis and discuss examples of crisis situations. Client helped the group explore how coping with crisis in unhealthy ways can lead to a mental health crisis. Client shared a personal example of how he coped with loss in unhealthy ways and it resulted in a hospitalization. Client stated one can prevent external crises from turning into internal crises by recognizing early warning signs and using coping skills. Group identified warning signs one could have which included; self-harm, drinking or drugs, increased sleep, avoidance, procrastination, shutting down, isolation, suicidal thoughts, difficulty completing daily tasks, and racing thoughts. Client completed his own personal warning signs worksheet. Client identified his top three crisis warning signs to be isolation, frequent crying spells, and not taking care of personal hygiene. Benefited from group by increasing awareness of crisis and personal warning signs. Will continue IOP to further promote mood stability, sobriety, and coping skill application.
--- NOTE | 2018-08-27 13:22 | BH.MDN ---
Multi-Disciplinary Note - Note 45-min Individual Time Started:: 11:40 Date: 08/27/18 Purpose of session/treatment goals addressed:: The purpose of this session was to address current symptoms, emotions, and application of healthy coping skills. Another goal was to establish aftercare. Other topics included: boundary setting and relapse prevention. Eye Contact:: Good Motor Activity:: Appropriate Appearance:: Neat Speech:: Appropriate Mood:: Anxious Affect:: Congruent Thoughts:: Circular, No evidence of hallucinations/delusions noted Staff Interventions:: Therapist used active listening and open-ended questions to explore client's current stressors, symptoms, and emotions. Therapist called with client to reschedule his appointment at [facility]. Therapist helped client process a recent stressor and reviewed boundary setting. Therapist reviewed healthy supports, coping skills, and maintenance strategies. Therapist encouraged client to establish a structured weekly schedule to promote gains and social activity for post IOP discharge. Client is to start working on this for homework. Client Response:: Client responded well to session, alert and oriented throughout. Client reports feeling dumb for forgetting his appointment at [facility] on Saturday. Client able to challenge negative thoughts instead of continuing self-deprecation. Client and therapist called and rescheduled his outpatient appointment. Client also willing to start grief counseling post [facility] discharge as well. Client able to recognize the benefits of having a structured schedule when he discharges from [facility]. Client acknowledges having one activity a day that gets him out of the house will promote gains and prevent isolation. Client currently has counseling and rastafari which keep him social and active. Client shared he wants to become more involved with his rastafari which will promote mood stability. Client also has information for [facility] as well. Client expressed a recent stressor and processed it with therapist. Client reported feeling hurt and taken advantage of by a close friend who client was planning to go visit in [place] in a few weeks. Client receptive to boundary setting and communicating his needs with the friend. Client and therapist also discussed the potential triggers, pros, and cons of going to visit his friend. Client reported if I feel uncomfortable or triggered to drink I'll leave and come home. Client able to identify healthy supports and coping skills to use to continue to prevent relapse. Client willing to create a schedule for homework. Risks/Concerns:: Client denies any suicidal ideations, plan, or intent as of 08/27/18. Client continues to report sobriety. Progress Toward Goals/Plan:: Client continues to make progress towards his treatment goals as shown by client?s ability to maintain sobriety and manage daily stressors. Client continues to do well with getting out of the house, challenging negative thoughts, and focusing on one goal at a time. Client shared the recent stressor with his friend has increased anxiety and client has some worries about maintenance after discharge. However, with processing and plan to develop a routine, client reports feeling more confident. Client will continue IOP as he can benefit from ongoing reinforcement of healthy coping skills and supports to prevent relapse, improve emotional regulation, and increase daily functioning. Time Stopped:: 12:19
--- NOTE | 2018-08-29 09:00 | BH.SGPN.GN ---
Behaviors/Verbalizations/Mental Status: [] Eye contact is good. Motor activity is appropriate. Appearance is neat. Speech is Appropriate. Mood is anxious. Affect is congruent. Thoughts are linear and logical. No evidence of psychosis. Reviewed daily check in sheet and no reports of suicidal ideations or intent. Client Response/Progress/Benefit: [] Pt was an active participant in group discussion. Shared that his brother and [id number] are in town. Believes that he is managing his emotions well. Reports some anxiety, irritability, and overall stress. Discussed that he is begining to rely less on his PRN medications for anxiety stating that he currently takes on average one Ativan every 3 days. States I'm doing things the right way. Managing emotions and utilizing healthy coping skills. Improved sleep and increased confidence. Lonliness is still a concern however he reports being in a better mental state and functioning better. He remembers his 4 weeks of isolation and self-medication with alcohol and is proud of his progress. Benefited from group support, encouragement, and feedback from peers. Progress noted per pt report. Will continue in IOP to prevent decompensation, maintain gains, and provide support. Narrative Note: []
--- NOTE | 2018-08-29 10:08 | BH.SGPN.GN ---
Pt receptive to session, provided input and remained an active listener throughout discussion on stress. Indicated connecting with discussion on how several small stressors can build until reaching breaking point. Able to brainstorm with the group positive and negative aspects of stress on physical and mental health. Pt participated in identifying current stressors impacting mental health. Pt's current stressors include: current living environment, sobriety, lack of local supports/friends, mental health, and not knowing what to do with his house. Appeared to benefit from gaining awareness of own current stressors and learning about the impact stress has on overall wellbeing. Progress noted in improved ability to identify impact of not managing stressors is impacting his mental health and wellbeing. Recommended continued IOP tx to increase utilization of healthy coping skills, improve ability to manage stress and cope in healthy ways, and prevent decompensation. Behaviors/Verbalizations/Mental Status: [Pt alert and oriented, casual and neat dress, hygiene tended to. Eye contact good. Motor activity appropriate. Speech within normal limits. Affect congruent, mood euthymic. Thoughts linear, logical, no signs of hallucinations or delusions.] Client Response/Progress/Benefit: [] Narrative Note: []
--- NOTE | 2018-08-29 11:08 | BH.SGPN.GN ---
Behaviors/Verbalizations/Mental Status: []Client alert and oriented, neatly dressed and groomed. Eye contact good. Motor activity appropriate. Speech within normal limits. Affect congruent, mood euthymic. Thoughts linear, logical, no signs of hallucinations or delusions. Client Response/Progress/Benefit: []Client responded well to session, providing to discussion and participating in activity. Client listened as the group further processed their stress jars. Client agreed with peers that it is helpful to focus on stressors in one?s control to reduce stress and anxiety. Client reported focuses on what is in his control gives him the ability to make change. Client participated in the group activity. The group quickly became frustrated, reported wanting to give up, and tried to find loopholes. The group was able to connect this to how they typically respond to stress in their daily lives. After gentle challenging and encouragement from voice writing reporter, client was able to use in the moment coping to help the group finish the activity. Client identified strategies from the activity that help the group successfully manage stress such as; slowing down, trying new ideas, using their resources, being persistent, and focusing on one thing at a time. Client helped the group discuss the four A?s of stress management. Client selected acceptance as the strategy he would like to improve. Progress noted in client?s improved mood stability and maintained sobriety. Will continue IOP to promote gains and improve healthy coping skills.
--- NOTE | 2018-09-02 09:10 | BH.SGPN.GN ---
Behaviors/Verbalizations/Mental Status: [] Eye contact is good. Motor activity is appropriate. Appearance is neat. Speech is Appropriate. Mood is euthymic. Affect is full. Thoughts are linear and logical. No evidence of psychosis. Reviewed daily check in sheet and no reports of suicidal ideations or intent. Client Response/Progress/Benefit: [] Pt was an active participant in group discussion. Emotion for today is positive. Shared that the rest of the week with his family went well. Reports increased loneliness once they left however he expected and was prepared for this. States that he feels more confidence and prepared for stressors and emotions in his life. More comfortable with being alone and can identify the benefits. He continues to contemplate if his future is in [place] or if he will move to [place]. Originally he noted that he wanted to move to be closer to people however is currently OK with being by himself. Less dependence on others to maintain his mood and self-esteem. Has not drank since entering [facility]. Progress noted per pt report. Benefited from group support and encouragement. Will continue in [facility] to maintain gains. Plan to discharge this week. Narrative Note: []
--- NOTE | 2018-09-02 10:10 | BH.SGPN.GN ---
Behaviors/Verbalizations/Mental Status: []Client alert and oriented, neatly dressed and groomed. Eye contact good. Motor activity appropriate. Speech within normal limits. Affect congruent, mood euthymic. Thoughts linear, logical, no signs of hallucinations or delusions. Client Response/Progress/Benefit: []Client was an active participant in group activity and discussion. Client connected with the quote and stated that mental health growth does not happen by mere chance. Client reported ?it?s from our own hard work and positive mindset.? Client, along with other group members, provided input and suggestions when identifying what internal/external forces are and the impact that these forces have on their mental health. Examples of negative forces included; toxic people, unhealthy coping skills, negative thinking, and lack of motivation. Client identified positive self-talk, setting boundaries, self-care, routine, and mindfulness as positive forces. The group started, but they did not finish the activity. Benefited from increased awareness of how different positive and negative forces impact mental health. Progress noted in client?s sobriety, report of improved mood, and generalization of coping skills. Can benefit from ongoing IOP to promote gains and further reinforce coping skills.
--- NOTE | 2018-09-02 11:08 | BH.SGPN.GN ---
Behaviors/Verbalizations/Mental Status: [Client alert and oriented, casually and neatly dressed and groomed. Eye contact good. Motor activity appropriate. Speech within normal limits. Affect congruent and mood euthymic. Thoughts linear, logical, no signs of hallucinations or delusions.] Client Response/Progress/Benefit: [Client willing to participate in activity, provided input throughout discussion. Client completed reflection worksheet identifying positive and negative forces impacting life and mental wellness. Client identified positive forces to include: family, therapy, friends, his dog, and financial stability. Client indicated negative forces include: loneliness, grief, anxiety, boredom, and anxiety. Client reported he believes he but would benefit from continued focus on improving ability to cope with loneliness by engaging in more social activities in the area. Client seemed to benefit from increased awareness of personal positive and negative forces in life and impact they have on mental health and wellness. Client to continue IOP level of care to maintain gains, continue to promote consistent skill application and healthy change behaviors, and prevent decompensation.] Narrative Note: []
--- NOTE | 2018-09-05 07:01 | BH.AFTERPLAN ---
Aftercare Plan - Demographics Treatment End Date:: 09/05/18 Psychiatrist:: Ngozi Rosado Psychiatrist Office #:: [phone] [facility]/IOP Therapist:: Priya Ochoa Therapist Phone #:: [phone] - Medications Home Medications: Home Medications Clonazepam [Klonopin] 0.5 mg PO BID PRN PRN 10/09/16 Trazodone HCl 100 mg PO QHS 10/09/16 Amlodipine [Norvasc] 10 mg PO DAILY #30 tablet 07/11/18 Bupropion HCl [Wellbutrin Xl] 300 mg PO BREAKFAST 07/25/18 Lamotrigine [Lamictal] 100 mg PO DAILY 07/25/18 Topiramate [Topamax] 100 mg PO QHS 07/25/18 - Plan Details Progress/Aftercare Plan Details:: Thong has made significant strides since starting IOP as shown by his improved mood and increased ability to cope with his mental health symptoms. When Thong started IOP he was tearful every day and was experiencing depression and loneliness. Thong had been isolating and reported he lacked confidence. Now, Thong is making social connections, getting out of his house regularly, and reports feeling like his old self more often. Thong no longer cries daily, and his depressive symptoms have decreased. Thong has maintained sobriety and has completed a relapse prevention plan. Thong has awareness of his mental health and alcohol use warning signs and triggers which has helped him make choices that support his wellbeing. Thong has shown progress in boundary setting and self-advocacy. Thong has increased his social supports in the area as he has been going to a new [facility]. Thong reports an improved mood, more motivation, and decreased isolation. Thong has been able to challenge negative self-talk and follow through with daily goals. Thong experienced stressors while in IOP, but he was able to maintain mood stability which is significant. Thong plans to continue outpatient counseling and psychiatric services. Thong sees Mira Sin at [facility] for psychiatry and he has an appointment at [facility] on 09/09/18 for individual mental health and AoD counseling. Thong has been given information for [facility] to participate in grief counseling and he plans to explore this service. Thong will continue going to [facility] and is interested in attending [facility] for additional social support. Thong has also been encouraged to explore AA to support his ongoing sobriety. Strategies for Success:: 1. Awareness! Remember to stay aware of warning signs and triggers. Big warning signs include increased crying, isolation, and negative thinking. 2. Stay active! Continue getting out of the house regularly. 3. Maintain support! Continue building and reaching out to your healthy support network. This includes Religious, family and friends, therapy, and social support groups in the area. 4. Review your IOP notes and relapse prevention strategies. 5. Challenge those negative thoughts and use positive self-talk! 6. PJ rule- no matter how you feel at least change out of your PJs! 7. Small goals! Keep that balance of pushing yourself, but not overdoing it! 8. Keep your house alcohol free and be aware of your triggers! 9. Routine! Maintain a consistent daily routine. This has been such a great help for you. 10. Reflect on how far you have come!! GREAT WORK! - Appointments Appointments/Referrals to Other Services:: 1. Follow up with Mira Sin. Next appointment is 2. Follow up with Izzy Fisher. First appointment is 09/09/18. 3. Natividda Camarena at [facility] for grief counseling. [phone]. 4. [facility]! They have men in recovery as well as other social support groups. 5. AA is always an option should you want to explore it. 6. [facility]! first Saturday of the month!
--- NOTE | 2018-09-05 14:23 | BH.DS_ITS ---
Discharge Summary - Demographics Date of Admission:: 07/22/18 Discharge Date: 09/05/18 Presenting Problems at Admission:: Client is a 57-year-old male with a history of depression and alcohol use. Client presented to [facility] after being admitted to [facility] for alcohol detoxification treatment due to a reported four-week binge drinking episode. Client reported he was self-medicating with a half of a fifth of vodka daily to cope with his loneliness and depression. Client shared his decompensation in mental health symptoms has been occurring for the past two years. Client's father and mother both within the last two years which was a trigger for his recent depressive episode. At admission, client endorsed isolative behaviors, loneliness, frequent crying spells, daily panic attacks, anhedonia, low energy, increased sleep, decreased appetite, hopelessness, and racing thoughts. Client shared prior to going to the hospital I locked myself in my house and drank all day. Client?s symptoms were impacting his ability to complete ADLs, function at his baseline, and impacting his overall quality of life. Discharge Diagnoses:: Major depression, recurrent F33.2; bereavement; adjustment disorder with anxiety; alcohol use disorder Reason for Discharge:: Client has made significant progress since starting [facility] as evidenced by his maintained sobriety and reduced DSM-5 scores. Client no longer meets criteria for [facility] level of care. - Treatment Progress During Treatment & Response: Client has responded well to [facility] and shown significant progress towards treatment goals. Throughout his time in [facility], client was an active group member who often provided feedback and made connections with topics during sessions. Client had good attendance and positive feedback. During individual sessions, client was receptive to feedback and thought challenging. Client was also willing to set goals, create new supports, and reported implementing healthy coping skills daily. Client?s application of coping skills and motivation to improve his mental health and sobriety are likely the cause of his significant progress. Client reports increased mood stability, no more panic attacks, a more positive outlook, increased social support, and more awareness. Client reported ?I learned a lot here; this program did a lot for me.? At admission, client had been crying daily, isolating, and feeling lonely. At discharge, client had been going to a new [facility], getting out of the house regularly, completing ADL?s, and utilizing healthy coping skills. Client completed a relapse prevention plan as well to remind client of triggers, coping skills, and supports. Client?s DSM-5 scores went from 37 at admission to 1at discharge. Client?s scores for depression went from 6/8 at admission, to 0/8 at discharge. Additionally, client?s DSM-5 scores for anxiety reduced from 9/12 to 0/12 at discharge. Client also reported feeling more connected with people and knowing more about what he wants in life at discharge. Issues Still to be Addressed:: Client has made significant progress since starting IOP as shown by his reduced symptoms, reduced isolation, and maintained sobriety. However, client can continue to benefit from ongoing counseling to reinforce healthy coping skills, promote maintenance, and manage symptoms. Client has been building his social support network and establishing a schedule. Client can benefit from continuing to work on this goal. Client has done well to not isolate and maintain sobriety. However, there is a concern post IOP discharge that without the structure of group, client may be triggered to fall into old patterns. Client and therapist have discussed this concern in depth and have created strategies to prevent this. Client's last binge drinking episode was triggered by grief and loneliness. Client will be able to further process his grief in grief therapy. Lastly, client has expressed wanting to find employment in the area and could benefit from resume building and interview practice. Discharge Recommendations/Instructions:: Client is recommended to follow up with his outpatient providers to promote gains and prevent relapse. Client sees Mira Sin at [facility] for medication management. Client last saw Mira in July. Client recommended to follow up with individual counseling at [facility] on 09/09/18. Client has an intake appointment with Izzy Saldana. Client reports plan to follow up with grief counseling at [facility] in addition to outpatient counseling to further process his losses over the years. Lastly, client has been offered numerous resources in the area to support sobriety and promote socialization including; AA, [facility], [facility], [facility], and groups at his [facility]. Discharge Handout: Complete Discharge Handout with client on aftercare options and continuity of care.
--- NOTE | 2018-09-05 14:23 | BH.MDN ---
Multi-Disciplinary Note - Note 30-min Individual Time Started:: 08:00 Date: 09/05/18 Purpose of session/treatment goals addressed:: The purpose of this session was to review client's progress and review strategies that will promote mood stability and gains made in IOP. Another goal was to discuss discharge recommendations. Eye Contact:: Good Motor Activity:: Appropriate Appearance:: Neat Speech:: Appropriate Mood:: Euthymic Affect:: Congruent Thoughts:: Linear, Logical, No evidence of hallucinations/delusions noted Staff Interventions:: Therapist used open-ended questions to explore client's thoughts on personal progress. Therapist reviewed supports, warning signs, and coping skills with client to promote gains and prevent setbacks. Therapist discussed aftercare plan with client and used strengths-perspective to empower client on the goals client has accomplished. Therapist discussed the benefits of ongoing maintenance and use of daily coping skills. Therapist gave client a quote collage for closure. Client Response:: Client responded well to session, open to meeting with therapist. Client reported he feels ?very grateful? that he participated in [facility]. Client shared what brought him to [facility] was not easy, but ?I got so much out of it.? Client reflected on his progress since starting IOP which includes; reduced depression, decreased isolation, improved mood, less crying, and improved social supports. Client has been actively going to [facility] and has a plan in place to maintain structure after IOP discharge. Client reported he is starting to feel more like his old self and he has confidence again. Client able to identify warning signs and triggers for mental health and alcohol use as well as coping skills to prevent setbacks. Client?s coping skills included; maintaining a routine, small goals, ?the PJ rule,? positive self-talk, reaching out to support, avoiding triggers, and thought challenging. Client reported along with his depression decreasing, he has also been significantly less anxious. Client stated he has been weaning off his Klonopin and soon he will no longer need it. Client is receptive to aftercare options including outpatient counseling, psychiatry, and social support services. Risks/Concerns:: Client denies any suicidal ideations, plan, or intent as of 09/05/18. Progress Toward Goals/Plan:: Client to discharge from [facility] today as he has made significant progress towards his treatment goals. Client?s DSM-5 symptoms have decreased by 36 points and he reports improved ability to cope with mental health symptoms and loneliness. Client identified personal progress in maintaining sobriety, improved outlook, increased confidence, reduced isolation, more support, and decreased crying. Client reports plan to follow up Izzy Jessica at [facility] for outpatient mental health and AoD counseling. Client also will follow up with Mira Sin for psychiatric services, Natividad Camarena for grief counseling, and SHANELE[facility] Emmanuel. Lastly, client was provided resources for local AA meetings. Time Stopped:: 08:30
== END 2018-08-29 14:00 | disposition home or self-care (01) ==
LOC: BHIOP 09:00
PROVIDERS: Family Provider Family Medicine; PCP Family Medicine; Referring Provider Psychiatry & Neurology Psychiatry; Visit Provider Psychiatry & Neurology Psychiatry
DX: F33.2 Major depressive disorder, recurrent severe without psychotic features (principal); Z63.4 Disappearance and death of family member; F43.22 Adjustment disorder with anxiety; Z72.89 Other problems related to lifestyle
CPT/HCPCS: 99214; H0035; H2012; H2020; 90832; 90834